=== PATIENT | female | born 1935 | race Caucasian/White ===

== ENCOUNTER 2016-08-17 13:01 | Emergency (ER) | payer MEDICARE ==
[~2016-08-17] VITALS: Ht 177.8 cm; Wt 81.6 kg
--- NOTE | 2016-08-17 14:22 | RAD ---
Pelvis, single view, 08/17/2016: History: Pelvic pain, recent fall No fracture or dislocation is identified. There are mild degenerative changes at both hip joints IMPRESSION: No acute bony abnormality is detected. Portable chest, 08/17/2016: History: Chest pain, recent fall The heart size and pulmonary vascularity are normal. No pulmonary infiltrates are seen. There is no evidence of pneumothorax or pleural fluid. The bony structures are demineralized. There are mild degenerative changes at both shoulders and in the spine. IMPRESSION: No acute cardiopulmonary abnormality is detected.
[2016-08-17 15:00] VITALS: BP 123/70
[2016-08-17] MEDS ORDERED: IBUP-1007 PO (15:08)
--- NOTE | 2016-08-17 15:16 | PHYS DOC ---
Past Medical History Past Medical History: Anxiety, Arthritis, Dementia, Depression, Diabetes-Type II, GERD, Glaucoma, High Cholesterol, Hypertension, Hypothyroid, IBS Past Surgical History: Other Additional Past Surgical Histo: UNKNOWN Alcohol Use: None Drug Use: None Adult General Chief Complaint Chief Complaint: MECHANICAL FALL HPI HPI Patient is a 81 year old male who presents with fall at home lives in assisted living and found her lying on the ground she had just fallen prior to that on the carpeted floor denies any pain or injury. History physical review of systems limited somewhat by patient's dementia. Denies any nausea vomiting diarrhea fever chest pain or shortness of breath. Denies any rib pain denies any headache or neck or back pain. No apparent injury seen Review of Systems Review of Systems Constitutional: Denies fever or chills [] Eyes: Denies change in visual acuity, redness, or eye pain [] HENT: Denies nasal congestion or sore throat [] Respiratory: Denies cough or shortness of breath [] Cardiovascular: No additional information not addressed in HPI [] GI: Denies abdominal pain, nausea, vomiting, bloody stools or diarrhea [] : Denies dysuria or hematuria [] Musculoskeletal: Denies back pain or joint pain [] Integument: Denies rash or skin lesions [] Neurologic: Denies headache, focal weakness or sensory changes [] Endocrine: Denies polyuria or polydipsia [] Allergies Allergies Allergies Coded Allergies Type Severity Reaction Last Updated Verified No Known Drug Allergies 08/17/16 No Physical Exam Physical Exam Constitutional: Well developed, well nourished, no acute distress, non-toxic appearance. [] HENT: Normocephalic, atraumatic, bilateral external ears normal, oropharynx moist, no oral exudates, nose normal. [] Eyes: PERRLA, EOMI, conjunctiva normal, no discharge. [] Neck: Normal range of motion, no tenderness, supple, no stridor. [] Cardiovascular:Heart rate regular rhythm, no murmur [] Lungs & Thorax: Bilateral breath sounds clear to auscultation [] Abdomen: Bowel sounds normal, soft, no tenderness, no masses, no pulsatile masses. [] Skin: Warm, dry, no erythema, no rash. [] Back: No tenderness, no CVA tenderness. [] Extremities: No tenderness, no cyanosis, no clubbing, ROM intact, no edema. [] Neurologic: Alert and oriented X 3, normal motor function, normal sensory function, no focal deficits noted. [] Psychologic: Affect normal, judgement normal, mood normal. [] Current Patient Data Vital Signs Vital Signs Date Time Temp Pulse Resp B/P (MAP) Pulse Ox O2 Delivery O2 Flow Rate FiO2 08/17/16 15:00 100 23 123/70 (87) 96 Room Air 08/17/16 13:15 97.8 97.8 Lab Values Laboratory Tests Test 08/17/16 14:33 POC Hemoglobin 13.6 g/dL (12-15) POC Hematocrit 40 % (36-40) POC Sodium 143 mmol/L (135-145) POC Potassium 4.0 mmol/L (3.5-5.0) POC Chloride 105 mmol/L (98-110) POC Total CO2 25 mmol/L (23-32) Anion Gap 18 mmol/L (6-14) H POC Blood Urea Nitrogen 25 mg/dL (8-26) POC Creatinine 1.4 mg/dL (0.5-1.4) Glucose Level 147 mg/dL (70-99) H POC Ionized Calcium (Demetris) 1.16 mmol/L (1.13-1.32) Laboratory Tests 08/17/16 14:33 EKG EKG Normal sinus rhythm rate of 80 no STEMI QTC normal at 1315 [] Radiology/Procedures Radiology/Procedures X-ray of the chest and pelvis reveal no acute bony abnormalities reports reviewed by me from radiology [] Course & Med Decision Making Course & Med Decision Making Pertinent Labs and Imaging studies reviewed. (See chart for details) Patient had no complaints of pain she was able to ambulate without difficulties and the daughter feels comfortable taking her home. [Extensive discussion with the daughter as she had mentioned questioning whether not the patient should have a CT head. On the one hand the patient has no signs or symptoms of trauma on exam has a nontender head and neck in fact has no evidence of trauma whatsoever on her entire body. He seems to have a fixed delusion probably related from her dementia thinking she was at a green party earlier today but does not appear to be globally confused. I have offered the option to get a CT scan of the head and the daughter is declining it at this time. head injury precautions given. Nothing to Suggest occult infection labs were normal and chest x-ray and pelvis x-ray were unremarkable.] Dragon Disclaimer Dragon Disclaimer This electronic medical record was generated, in whole or in part, using a voice recognition dictation system. Departure Departure Impression: Primary Impression: Fall Disposition: 01 HOME, SELF-CARE Condition: STABLE Patient Instructions: Fall Prevention and Home Safety, [id number] Additional Instructions: As we discussed please placed padding in her shoes; ice the feet and elevate after work; MIGUEL AVILA MD August 17, 2016 15:16
[2016-08-18] MEDS ORDERED: synthroid (01:28)
[2016-08-18] MEDS ORDERED: zoloft (01:28)
[2016-08-18] MEDS ORDERED: aricept (01:28)
[2016-08-18] MEDS ORDERED: [UNRECOGNIZED DRUG - OTHER] (01:28)
[2016-08-18] MEDS ORDERED: namenda (01:28)
[2016-08-18] MEDS ORDERED: trazadone (01:28)
[2016-08-18] MEDS ORDERED: [UNRECOGNIZED DRUG - OTHER] (01:28)
[2016-08-18] MEDS ORDERED: flexeril (01:28)
[2016-08-18] MEDS ORDERED: ramipril (01:28)
--- NOTE | 2016-08-18 07:05 | EKG ---
[facility] [address] [place] [address] Test Date: 2016-08-17 Test Time: 13:11:19 Pat Name: CARL MIKE Department: Room: Gender: F Telemetry Rn: : [id number] Requested By: MIGUEL AVILA Order Number: [id number] Reading MD: Sherri Escobar Measurements Intervals Rives Rate: 80 P: 43 NM: 158 QRS: 18 QRSD: 100 T: 23 QT: 378 QTc: 440 Interpretive Statements SINUS RHYTHM NORMAL EKG RI6.01 Unconfirmed report No previous ECG available for comparison Electronically Signed On 08-21-2016 14:32:13 CDT by Sherri Escobar
[2016-08-18] MEDS ORDERED: TRAZ50TA15 PO (10:20)
[2016-08-18] MEDS ORDERED: ESTR0.45 PO (10:20)
[2016-08-18] MEDS ORDERED: SIMV80TA3 PO (10:20)
[2016-08-18] MEDS ORDERED: MEMA10TA PO (10:20)
[2016-08-18] MEDS ORDERED: RAMI5CAP PO (10:20)
[2016-08-18] MEDS ORDERED: DONE10TA7 PO (10:20)
[2016-08-18] MEDS ORDERED: SERT50TA PO (10:20)
[2016-08-18] MEDS ORDERED: LEVO150T PO (10:20)
[2016-08-18] MEDS ORDERED: GLIM2TAB2 PO (10:20)
[2016-08-18] MEDS ORDERED: PANT40TA5 PO (10:20)
== END 2016-08-17 15:33 | disposition home or self-care (01) ==
LOC: ER 13:01
DX: F03.90 Unspecified dementia, unspecified severity, without behavioral disturbance, psychotic disturbance, mood disturbance, and anxiety (principal); F41.9 Anxiety disorder, unspecified; M19.90 Unspecified osteoarthritis, unspecified site; F32.9 Major depressive disorder, single episode, unspecified; E11.9 Type 2 diabetes mellitus without complications; K21.9 Gastro-esophageal reflux disease without esophagitis; H40.9 Unspecified glaucoma; E78.00 Pure hypercholesterolemia, unspecified; E03.9 Hypothyroidism, unspecified; I10 Essential (primary) hypertension; K58.9 Irritable bowel syndrome, unspecified; W18.39XA Other fall on same level, initial encounter; Y93.89 Activity, other specified; Y92.009 Unspecified place in unspecified non-institutional (private) residence as the place of occurrence of the external cause; Y99.8 Other external cause status
CPT/HCPCS: 71010; 72170; 80047; 93005; 99284-25

== ENCOUNTER 2016-08-17 19:24 | Inpatient (IN) | payer MEDICARE ==
[~2016-08-17] VITALS: Ht 165.1 cm; Wt 77.1 kg
[~2016-08-17 19:24] MED LIST: IBUP-1007 PO
[2016-08-17 19:50] LABS: BILIRUBIN,URINE MODERATE (NEG); GLUCOSE,URINE NEGATIVE (NEG); NITRITE,URINE NEGATIVE (NEG); PH,URINE 5.5; PROTEIN,URINE 100 mg/dL (NEG-TRACE); UROBILINOGEN,URINE 0.2 mg/dL (0.2 mg/dL)
--- NOTE | 2016-08-17 19:55 | PHYS DOC ---
Past Medical History Past Medical History: Anxiety, Arthritis, Dementia, Depression, Diabetes-Type II, GERD, Glaucoma, High Cholesterol, Hypertension, Hypothyroid, IBS Past Surgical History: Other Additional Past Surgical Histo: UNKNOWN Alcohol Use: None Drug Use: None Adult General Chief Complaint Chief Complaint: WEAKNESS/GENERALIZED HPI HPI Patient is a 81 year old female who presents with worsening mild to moderate altered mental status and confusion with a history of dementia; onset was noticed by the daughter when she went to check on the mother after having a fall at her assisted living apartment this morning.. She was seen a few hours earlier by me at that time and had a fall at home but no complaints of pain or injury with done a chest x-ray and pelvis x-ray and check blood work which was unremarkable. Patient was ambulatory in the ED and was calm and seemed to answer questions appropriately while in the ED. I have had a discussion with him daughter regarding a CT of the abdomen which they have declined at that time and felt comfortable going home. Since that time the patient appears to be having some hallucinations at the house but no recurrent falls. Dr. mazas aware of the situation and we will be admitting after checking a urine and a CT of the head and C-spine. Review of Systems Review of Systems Constitutional: Denies fever or chills [] Eyes: Denies change in visual acuity, redness, or eye pain [] HENT: Denies nasal congestion or sore throat [] Respiratory: Denies cough or shortness of breath [] Cardiovascular: No additional information not addressed in HPI [] GI: Denies abdominal pain, nausea, vomiting, bloody stools or diarrhea [] : Denies dysuria or hematuria [] Musculoskeletal: Denies back pain or joint pain [] Integument: Denies rash or skin lesions [] Neurologic: Denies headache, focal weakness or sensory changes [] Endocrine: Denies polyuria or polydipsia [] Current Medications Current Medications Current Medications Medications (Trade) Dose Ordered Sig/Cody Start Time Stop Time Status Last Admin Dose Admin Acetaminophen (Tylenol) 650 mg PRN Q4HRS PRN 08/17/16 20:45 08/18/16 20:44 Ondansetron HCl (Zofran) 4 mg PRN Q8HRS PRN 08/17/16 20:45 08/18/16 20:44 Allergies Allergies Allergies Coded Allergies Type Severity Reaction Last Updated Verified No Known Drug Allergies 08/17/16 No Physical Exam Physical Exam Constitutional: Well developed, well nourished, no acute distress, non-toxic appearance. [Very pleasant without complaints] HENT: Normocephalic, atraumatic, bilateral external ears normal, oropharynx moist, no oral exudates, nose normal. [] Eyes: PERRLA, EOMI, conjunctiva normal, no discharge. [] Neck: Normal range of motion, no tenderness, supple, no stridor. [] Cardiovascular:Heart rate regular rhythm, no murmur [] Lungs & Thorax: Bilateral breath sounds clear to auscultation [] Abdomen: Bowel sounds normal, soft, no tenderness, no masses, no pulsatile masses. [] Skin: Warm, dry, no erythema, no rash. [] Back: No tenderness, no CVA tenderness. [] Extremities: No tenderness, no cyanosis, no clubbing, ROM intact, no edema. [] Neurologic: Alert and appears to be coherent and understanding where she has. She is a very poor historian and is difficult to distinction between dementia., normal motor function, normal sensory function, no focal deficits noted. [Knows signs of stroke seen on exam] Psychologic: Affect normal, judgement normal, mood normal. [] Current Patient Data Vital Signs Vital Signs Date Time Temp Pulse Resp B/P (MAP) Pulse Ox O2 Delivery O2 Flow Rate FiO2 08/17/16 19:52 99.2 96 20 138/69 (92) 93 Room Air 99.2 Lab Values Laboratory Tests Test 08/17/16 19:42 Urine Collection Type U cath Urine Color Yellow Urine Clarity Turbid Urine pH 5.5 Urine Specific [place] 1.020 Urine Protein 100 mg/dL (NEG-TRACE) Urine Glucose (UA) Negative mg/dL (NEG) Urine Ketones (Stick) Trace mg/dL (NEG) Urine Blood Moderate (NEG) Urine Nitrite Negative (NEG) Urine Bilirubin Moderate (NEG) Urine Urobilinogen Dipstick 0.2 mg/dL (0.2 mg/dL) Urine Leukocyte Esterase Trace (NEG) Urine RBC 1-2 /HPF (0-2) Urine WBC 5-10 /HPF (0-4) Urine Squamous Epithelial Cells Mod /LPF Urine Transitional Epithelial Cells Few /LPF Urine Amorphous Sediment Present /HPF Urine Bacteria 0 /HPF (0-FEW) Urine Hyaline Casts Moderate /HPF Urine Granular Casts Few /HPF Urine Mucus Mod /LPF EKG EKG [] Radiology/Procedures Radiology/Procedures CT head and C-spine: [Per radiology report negative no acute fracture and no bleed] Course & Med Decision Making Course & Med Decision Making Pertinent Labs and Imaging studies reviewed. (See chart for details) Daughter feels patient's much more confused we will admit due to failed outpatient management. We will exclude any occult trauma with a head and cervical spine CT and checking urine to exclude UTI. We'll discuss with Dr. Santos and plan to admit for observation. [] Dragon Disclaimer Dragon Disclaimer This electronic medical record was generated, in whole or in part, using a voice recognition dictation system. Departure Departure Impression: Primary Impression: Altered mental status Additional Impression: Dementia Disposition: 09 ADMITTED INPATIENT Admitting Physician: Winnie Santos Condition: STABLE Referrals: WINNIE SANTOS MD (PCP) Problem Qualifiers MIGUEL AVILA MD August 17, 2016 19:55
[2016-08-17 20:04] LABS: BACTERIA,URINE 0 /HPF (0-FEW); SQUAMOUS EPITHELIAL CELL,UR MOD /LPF
--- NOTE | 2016-08-17 20:32 | RAD ---
Exam performed: CT scan of the head and cervical spine without contrast. Date of Service: 08/17/2016 Comparison: None available Clinical History: Fall, confusion Technique: Helical acquisitions are obtained from the foramen magnum to the vertex without intravenous administration of contrast. In addition helical acquisitions are obtained through the cervical spine. Sagittal and coronal reformatted images are obtained and reviewed. CT scan head findings: Prominence of cortical sulci and ventricular system is noted consistent with age related atrophy. There are areas of low-attenuation within periventricular and subcortical deep white matter suggesting small vessel ischemic changes. Normal ding-white differentiation is maintained. There is no extra axial fluid collection, intraparenchymal hemorrhage or mass lesion. There is mucoperiosteal thickening involving the left maxillary and bilateral ethmoid air cells. The visualized orbits and the mastoid air cells are clear. The calvarium is intact. Impression: 1. Normal non-contrast CT of the brain. 2. Age-related atrophy and bilateral periventricular small vessel ischemic changes. 3. Left maxillary and bilateral ethmoid sinus disease. End Impression. CT cervical spine findings: Straightening of the cervical curvature. Bony fusion at C4-5 and C6 level. The remainder vertebral body heights are maintained. There is narrowing of C3/4 intravertebral disc space. There is no lorie or retrolisthesis. No prevertebral soft tissue swelling is identified. There are no fractures. No definite lymphadenopathy or masses are seen within the neck. The visualized thyroid and salivary glands appears preserved. Impression: 1. No acute abnormality seen in the CT scan cervical spine. 2. Spondylotic changes and degenerative disc disease noted. PQRS Compliance Statement: One or more of the following individualized dose reduction techniques were utilized for this examination: 1. Automated exposure control 2. Adjustment of the mA and/or kV according to patient size 3. Use of iterative reconstruction technique Electronically signed by: Tia Acosta MD (08/17/2016 8:29 PM)
[2016-08-17] MEDS ORDERED: ONDANSETRON PF 4 MG/2 ML VIAL. IV PRN (20:45)
[2016-08-17] MEDS ORDERED: ACETAMINOPHEN 325 MG TABLET. PO PRN (20:45)
[2016-08-18] VITALS (7 sets, daily range): BP systolic 128–142; BP diastolic 57–82
--- NOTE | 2016-08-18 01:06 | ACF ---
Admission Forms Criteria MENTAL STATUS CHANGE Clinical Indications for Inpatient Care (Place 'X' for any and all applicable criteria): Ongoing inpatient care may be needed for 1 or more of the following(1)(2)(3)(5)( 6): [X]I. Suspected serious etiology (eg, medical disorder, OPTOMECH[employer] ENGINEER event) of altered mental status [ ]II. Danger to self or others not manageable at lower level of care [ ]III. Grave disability (eg, inability to perform self care necessary at lower level of care) [ ]IV. Agitation or inappropriate behavior interfering with care for primary condition (eg, attempting to discontinue lines or drains prematurely, unable to cooperate with respiratory care) [ ]V. Delirium [A] [D][E] as described by 1 or more of the following(26): [ ]a) Delirium due to alcohol or sedative [F] withdrawal [ ]b) Delirium of uncertain etiology that has not responded to appropriate empiric treatment [ ]c) Delirium that prevents performance of a life-sustaining function (eg, feeding or hydrating oneself) [ ]. General contraindications and/or Inappropriate clinical situations for Observational Care in patients with Mental Status Change, when ANY ONE of the following is required: [ ]a) Prediction of prolongation of LOS based on ANY ONE of the following may be considered as a contraindication for observational care 2, 3, 4, 5, 6, 7, 8, 9, 10, 11 [ ]i) Age > 65 yrs. [ ]ii) Patient arriving by ambulance [ ]iii) Patient with high acuity [ ]iv) Patient requiring vital sign monitoring [ ]v) Patient on IV medication [ ]b) Systolic blood pressures greater than or equal to 180mmHg 3, 12 [ ]c) Patient with altered mental status including delirium and other alteration of consciousness, (3) [ ]d) Patient whose discharge disposition will be to a group home home or rehabilitation home should not be managed in Emergency Department Observation Unit. CMS rule requires 3 days hospital stay before such placement.3,13 [ ]e) Patient with failure to thrive due to broad array of etiologies 3,16,17 [ ]f) Inability to ambulate 3,14 Extended stay beyond goal length of stay for the primary condition may be needed until ALL of the following are present(3)(5): [ ]a) Underlying medical etiology of mental status change is absent, or has been established and adequately treated [ ]b) Danger to self or others is absent or manageable at lower level of care. [ ]c) Behavior crisis management, including physical or chemical restraints, is not required or available at lower level of car [ ]d) Substance or alcohol withdrawal is absent or manageable at lower level of care. [ ]e) Behavioral symptoms (eg, agitation, somnolence, inappropriate behavior) are absent, or are manageable at lower level of care. The original [facility] content created by [facility] has been revised. The portions of the content which have been revised are identified through the use of italic text or in bold, and [facility] has neither reviewed nor approved the modified material. All other unmodified content is copyright [facility]. Please see references footnoted in the original [facility] edition 2016 Admission Criteria Met?: Yes OSMAR WANG August 18, 2016 01:06
[2016-08-18] MEDS ORDERED: zoloft (01:28)
[2016-08-18] MEDS ORDERED: namenda (01:28)
[2016-08-18] MEDS ORDERED: trazadone (01:28)
[2016-08-18] MEDS ORDERED: flexeril (01:28)
[2016-08-18] MEDS ORDERED: aricept (01:28)
[2016-08-18] MEDS ORDERED: synthroid (01:28)
[2016-08-18] MEDS ORDERED: [UNRECOGNIZED DRUG - OTHER] (01:28)
[2016-08-18] MEDS ORDERED: [UNRECOGNIZED DRUG - OTHER] (01:28)
[2016-08-18] MEDS ORDERED: ramipril (01:28)
--- NOTE | 2016-08-18 08:00 | PDOC ---
GENERAL General: see dictated H&P. Problems: VITAL SIGNS Vital Signs: Vital Signs Date Time Temp Pulse Resp B/P (MAP) Pulse Ox O2 Delivery O2 Flow Rate FiO2 08/18/16 07:00 97.2 87 20 128/65 (86) 98 Room Air 97.2 ALLERGIES Allergies: Allergies Coded Allergies Type Severity Reaction Last Updated Verified No Known Drug Allergies 08/17/16 No MEDS Medications: Current Medications Medications (Trade) Dose Ordered Sig/Cody Start Time Stop Time Status Last Admin Dose Admin Acetaminophen (Tylenol) 650 mg PRN Q4HRS PRN 08/17/16 20:45 08/18/16 20:44 Ondansetron HCl (Zofran) 4 mg PRN Q8HRS PRN 08/17/16 20:45 08/18/16 20:44 LAB Lab: Laboratory Tests Test 08/17/16 19:42 Urine Collection Type U cath Urine Color Yellow Urine Clarity Turbid Urine pH 5.5 Urine Specific [place] 1.020 Urine Protein 100 mg/dL (NEG-TRACE) Urine Glucose (UA) Negative mg/dL (NEG) Urine Ketones (Stick) Trace mg/dL (NEG) Urine Blood Moderate (NEG) Urine Nitrite Negative (NEG) Urine Bilirubin Moderate (NEG) Urine Urobilinogen Dipstick 0.2 mg/dL (0.2 mg/dL) Urine Leukocyte Esterase Trace (NEG) Urine RBC 1-2 /HPF (0-2) Urine WBC 5-10 /HPF (0-4) Urine Squamous Epithelial Cells Mod /LPF Urine Transitional Epithelial Cells Few /LPF Urine Amorphous Sediment Present /HPF Urine Bacteria 0 /HPF (0-FEW) Urine Hyaline Casts Moderate /HPF Urine Granular Casts Few /HPF Urine Mucus Mod /LPF WINNIE SANTOS MD August 18, 2016 08:00
[2016-08-18 09:39] LABS: BASO # 0.2 x10^3/uL (0.0-0.2); BASO % 1 % (0-3); EOS % 3 % (0-3); HEMATOCRIT 33.6 % (36.0-47.0); HEMOGLOBIN 11.5 g/dL (12.0-15.5); LYMPH % 21 % (24-48); MEAN CORPUSCULAR HEMOGLOBIN 31 pg (25-35); MEAN CORPUSCULAR HGB CONC 34 g/dL (31-37); MEAN CORPUSCULAR VOLUME 92 fL (79-100); MONO % 7 % (0-9); NEUT % 68 % (31-73); PLATELET COUNT 370 x10^3/uL (140-400); RED BLOOD COUNT 3.66 x10^6/uL (3.50-5.40); RED CELL DISTRIBUTION WIDTH 14.2 % (11.5-14.5); WHITE BLOOD COUNT 14.3 x10^3/uL (4.0-11.0)
[2016-08-18 09:55] LABS: ALBUMIN 3.2 g/dL (3.4-5.0); ALBUMIN/GLOBULIN RATIO 0.9 (1.0-1.7); CALCIUM 8.8 mg/dL (8.5-10.1); CREATININE 2.4 mg/dL (0.6-1.0); GFR 19.4; POTASSIUM 3.5 mmol/L (3.5-5.1); TOTAL BILIRUBIN 0.3 mg/dL (0.2-1.0); TOTAL PROTEIN 6.9 g/dL (6.4-8.2)
[2016-08-18] MEDS ORDERED: ESTR0.45 PO (10:20)
[2016-08-18] MEDS ORDERED: RAMI5CAP PO (10:20)
[2016-08-18] MEDS ORDERED: SIMV80TA3 PO (10:20)
[2016-08-18] MEDS ORDERED: PANT40TA5 PO (10:20)
[2016-08-18] MEDS ORDERED: LEVO150T PO (10:20)
[2016-08-18] MEDS ORDERED: GLIM2TAB2 PO (10:20)
[2016-08-18] MEDS ORDERED: MEMA10TA PO (10:20)
[2016-08-18] MEDS ORDERED: TRAZ50TA15 PO (10:20)
[2016-08-18] MEDS ORDERED: SERT50TA PO (10:20)
[2016-08-18] MEDS ORDERED: DONE10TA7 PO (10:20)
[2016-08-18] MEDS: GLIMEPIRIDE 2 MG TABLET. PO SCH (11:03)
[2016-08-18] MEDS: PANTOPRAZOLE 40 MG TABLET.DR. PO SCH (11:03)
[2016-08-18] MEDS: LEVOTHYROXINE 150 MCG TABLET PO SCH (11:03)
[2016-08-18] MEDS: LISINOPRIL 10 MG TABLET PO SCH (11:04)
[2016-08-18] MEDS: SERTRALINE 50 MG TABLET. PO SCH (11:04)
[2016-08-18] MEDS: MEMANTINE 10 MG TABLET. PO SCH ×2 (11:04→20:33)
[2016-08-18] MEDS: ESTROGENS, CONJUGATED 0.3 MG TABLET PO SCH (12:07)
--- NOTE | 2016-08-18 13:51 | PDOC2 ---
NEUROLOGY CONSULT Date of Admission Date of Admission DATE: 08/18/16 TIME: 13:36 Reason for Consult Reason for Consult: IMPRESSION: Mental status changes. Metabolic encephalopathy. Hallucinations. Confusion. Fall. UTI Renal failure. DM HTN HLD Hypothyroidism. Dementia . RECOMMENDATIONS/PLAN: EEG Lab: see orders. Treat medical diseases. Treat UTI. UT/PT. HCT and CCT: Negative for acute findings. HISTORY OF THE PRESENT ILLNESS: 81-y-old female patient with above medical diseases has had a fall in her Assistance Living Apartment. She also has symptoms of generalized weakness and noted MS changes and confusion to be brought to the ER of [facility]. No focalized sensopty or motor deficits, but she was said to have hallucinations. Patient was unable to provide detail information about her hallucinations. PAST MEDICAL HISTORY: Please see above. PAST SURGERY HISTORY: No major surgery recently. ALLERGY: Unknown MEDICATIONS: Refer to [facility] HISTORY: Non contributory. SOCIAL HISTORY: Lives in Assistance Living apartment. Denies current smoking, drinking, and illicit drug use. REVIEW OF SYSTEMS: Constitutional: No malnutrition, or cachexia. Head: No traumatic brain or head injury. Skin: No edema, or rash. Ear: No infection. Eyes: No vision loss or color blindness. Nose: No bleeding or purulent discharges. Hearing: Hearing decrease. Neck: No injury. Breast: No history of cancer, masses,or discharges. Cardiac: HTN, HLD. Pulmonary: No COPD. GI: GERD. Urinary/genital: UTI. Endocrinologic: Diabetes Mellitus, hypothyroidism. Skeletomuscular: Generalized weakness. Neurological: see HP. Psychiatric: Denies drug use/abuse. Otherwise, not [id number] review of systems. PHYSICAL EXAMINATION: General appearance is in no acute distress. HEENT: Normocephalic and nontraumatic. Eyes, nose, ears, and throat are unremarkable. Neck is supple. No lymphadenopathy. No crepitus. Cardiovascular: S1, S2, regular rate and rhythm. Pulmonary: Clear to auscultation bilaterally. Abdomen: Bowel sounds are positive. Extremities: No rash, lesions, or edema. No restriction of range of motion NEUROLOGICAL EXAMINATION: Awake. Not oriented to time, place and person. PERRL. EOMI. CN: no focal findings. Muscle tone: within normal. Muscle strength: 4 DTR: 2 Plantar reflex: Neutral response bilaterally Gait: not examined in bed. Sensory exam: no acute abnormal findings. No cerebellar signs elicited. F-T-N test fine. Current Medications Current Medications Current Medications Ondansetron HCl (Zofran) 4 mg PRN Q8HRS PRN IV NAUSEA/VOMITING; Start 08/17/16 at 20:45; Stop 08/18/16 at 20:44 Acetaminophen (Tylenol) 650 mg PRN Q4HRS PRN PO FEVER; Start 08/17/16 at 20:45 ; Stop 08/18/16 at 20:44 Donepezil HCl (Aricept) 10 mg DAILY PO ; Start 08/19/16 at 11:00 Glimepiride (Amaryl) 2 mg DAILY08 PO Last administered on 08/18/16 11:03; Start 08/18/16 at 11:00 Levothyroxine Sodium (Synthroid) 150 mcg DAILY07 PO Last administered on 11:03; Start 08/18/16 at 11:00 Memantine (Namenda) 10 mg BID PO Last administered on 08/18/16 11:04; Start at 11:00 Pantoprazole Sodium (Protonix) 40 mg DAILY07 PO Last administered on 08/18/16 11:03; Start 08/18/16 at 11:00 Sertraline HCl (Zoloft) 50 mg DAILY PO Last administered on 08/18/16 11:04; Start 08/18/16 at 11:00 Trazodone HCl (Desyrel) 50 mg QHS PO ; Start 08/18/16 at 21:00 Estrogens Conjugated (Premarin) 0.45 mg DAILY PO Last administered on 12:07; Start 08/18/16 at 11:00 Lisinopril (Prinivil) 10 mg DAILY PO Last administered on 08/18/16 11:04; Start 08/18/16 at 11:00 Simvastatin (Zocor) 80 mg QHS PO ; Start 08/18/16 at 21:00 Active Scripts Active Reported Ramipril 5 Mg Capsule 1 Cap PO DAILY Glimepiride 2 Mg Tablet 1 Tab PO DAILY Namenda (Memantine Hcl) 10 Mg Tablet 1 Tab PO BID Premarin (Estrogens, Conjugated) 0.45 Mg Tablet 1 Tab PO DAILY Simvastatin 80 Mg Tablet 1 Tab PO QHS Synthroid (Levothyroxine Sodium) 150 Mcg Tablet 1 Tab PO DAILY Donepezil Hcl 10 Mg Tablet 1 Tab PO DAILY Pantoprazole Sodium 40 Mg Tablet.dr 1 Tab PO DAILY Trazodone Hcl 50 Mg Tablet 1 Tab PO QHS Zoloft (Sertraline Hcl) 50 Mg Tablet 1 Tab PO DAILY Allergies Allergies: Coded Allergies: No Known Drug Allergies (Unverified , 08/17/16) Vitals VITALS Vital Signs Date Time Temp Pulse Resp B/P (MAP) Pulse Ox O2 Delivery O2 Flow Rate FiO2 08/18/16 11:04 87 128/65 08/18/16 11:00 98.0 22 98 Room Air 98.0 Labs Labs Laboratory Tests Test 08/17/16 19:42 08/18/16 09:30 Urine Collection Type U cath Urine Color Yellow Urine Clarity Turbid Urine pH 5.5 Urine Specific [place] 1.020 Urine Protein 100 mg/dL (NEG-TRACE) Urine Glucose (UA) Negative mg/dL (NEG) Urine Ketones (Stick) Trace mg/dL (NEG) Urine Blood Moderate (NEG) Urine Nitrite Negative (NEG) Urine Bilirubin Moderate (NEG) Urine Urobilinogen Dipstick 0.2 mg/dL (0.2 mg/dL) Urine Leukocyte Esterase Trace (NEG) Urine RBC 1-2 /HPF (0-2) Urine WBC 5-10 /HPF (0-4) Urine Squamous Epithelial Cells Mod /LPF Urine Transitional Epithelial Cells Few /LPF Urine Amorphous Sediment Present /HPF Urine Bacteria 0 /HPF (0-FEW) Urine Hyaline Casts Moderate /HPF Urine Granular Casts Few /HPF Urine Mucus Mod /LPF White Blood Count 14.3 x10^3/uL (4.0-11.0) Red Blood Count 3.66 x10^6/uL (3.50-5.40) Hemoglobin 11.5 g/dL (12.0-15.5) Hematocrit 33.6 % (36.0-47.0) Mean Corpuscular Volume 92 fL (79-100) Mean Corpuscular Hemoglobin 31 pg (25-35) Mean Corpuscular Hemoglobin Concent 34 g/dL (31-37) Red Cell Distribution Width 14.2 % (11.5-14.5) Platelet Count 370 x10^3/uL (140-400) Neutrophils (%) (Auto) 68 % (31-73) Lymphocytes (%) (Auto) 21 % (24-48) Monocytes (%) (Auto) 7 % (0-9) Eosinophils (%) (Auto) 3 % (0-3) Basophils (%) (Auto) 1 % (0-3) Neutrophils # (Auto) 9.7 x10^3uL (1.8-7.7) Lymphocytes # (Auto) 3.0 x10^3/uL (1.0-4.8) Monocytes # (Auto) 1.0 x10^3/uL (0.0-1.1) Eosinophils # (Auto) 0.4 x10^3/uL (0.0-0.7) Basophils # (Auto) 0.2 x10^3/uL (0.0-0.2) Erythrocyte Sedimentation Rate 65 (0-25) Sodium Level 137 mmol/L (136-145) Potassium Level 3.5 mmol/L (3.5-5.1) Chloride Level 100 mmol/L (98-107) Carbon Dioxide Level 28 mmol/L (21-32) Anion Gap 9 (6-14) Blood Urea Nitrogen 40 mg/dL (7-20) Creatinine 2.4 mg/dL (0.6-1.0) Estimated GFR (Cockcroft-Gault) 19.4 BUN/Creatinine Ratio 17 (6-20) Glucose Level 233 mg/dL (70-99) Calcium Level 8.8 mg/dL (8.5-10.1) Total Bilirubin 0.3 mg/dL (0.2-1.0) Aspartate Amino Transf (AST/SGOT) 55 U/L (15-37) Alanine Aminotransferase (ALT/SGPT) 37 U/L (14-59) Alkaline Phosphatase 73 U/L (46-116) Total Protein 6.9 g/dL (6.4-8.2) Albumin 3.2 g/dL (3.4-5.0) Albumin/Globulin Ratio 0.9 (1.0-1.7) Vitamin B12 Level 287 pg/mL (247-911) Thyroid Stimulating Hormone (TSH) 6.631 uIU/mL (0.358-3.74) Laboratory Tests Test 08/17/16 19:42 08/18/16 09:30 Urine Collection Type U cath Urine Color Yellow Urine Clarity Turbid Urine pH 5.5 Urine Specific [place] 1.020 Urine Protein 100 mg/dL (NEG-TRACE) Urine Glucose (UA) Negative mg/dL (NEG) Urine Ketones (Stick) Trace mg/dL (NEG) Urine Blood Moderate (NEG) Urine Nitrite Negative (NEG) Urine Bilirubin Moderate (NEG) Urine Urobilinogen Dipstick 0.2 mg/dL (0.2 mg/dL) Urine Leukocyte Esterase Trace (NEG) Urine RBC 1-2 /HPF (0-2) Urine WBC 5-10 /HPF (0-4) Urine Squamous Epithelial Cells Mod /LPF Urine Transitional Epithelial Cells Few /LPF Urine Amorphous Sediment Present /HPF Urine Bacteria 0 /HPF (0-FEW) Urine Hyaline Casts Moderate /HPF Urine Granular Casts Few /HPF Urine Mucus Mod /LPF White Blood Count 14.3 x10^3/uL (4.0-11.0) Red Blood Count 3.66 x10^6/uL (3.50-5.40) Hemoglobin 11.5 g/dL (12.0-15.5) Hematocrit 33.6 % (36.0-47.0) Mean Corpuscular Volume 92 fL (79-100) Mean Corpuscular Hemoglobin 31 pg (25-35) Mean Corpuscular Hemoglobin Concent 34 g/dL (31-37) Red Cell Distribution Width 14.2 % (11.5-14.5) Platelet Count 370 x10^3/uL (140-400) Neutrophils (%) (Auto) 68 % (31-73) Lymphocytes (%) (Auto) 21 % (24-48) Monocytes (%) (Auto) 7 % (0-9) Eosinophils (%) (Auto) 3 % (0-3) Basophils (%) (Auto) 1 % (0-3) Neutrophils # (Auto) 9.7 x10^3uL (1.8-7.7) Lymphocytes # (Auto) 3.0 x10^3/uL (1.0-4.8) Monocytes # (Auto) 1.0 x10^3/uL (0.0-1.1) Eosinophils # (Auto) 0.4 x10^3/uL (0.0-0.7) Basophils # (Auto) 0.2 x10^3/uL (0.0-0.2) Erythrocyte Sedimentation Rate 65 (0-25) Sodium Level 137 mmol/L (136-145) Potassium Level 3.5 mmol/L (3.5-5.1) Chloride Level 100 mmol/L (98-107) Carbon Dioxide Level 28 mmol/L (21-32) Anion Gap 9 (6-14) Blood Urea Nitrogen 40 mg/dL (7-20) Creatinine 2.4 mg/dL (0.6-1.0) Estimated GFR (Cockcroft-Gault) 19.4 BUN/Creatinine Ratio 17 (6-20) Glucose Level 233 mg/dL (70-99) Calcium Level 8.8 mg/dL (8.5-10.1) Total Bilirubin 0.3 mg/dL (0.2-1.0) Aspartate Amino Transf (AST/SGOT) 55 U/L (15-37) Alanine Aminotransferase (ALT/SGPT) 37 U/L (14-59) Alkaline Phosphatase 73 U/L (46-116) Total Protein 6.9 g/dL (6.4-8.2) Albumin 3.2 g/dL (3.4-5.0) Albumin/Globulin Ratio 0.9 (1.0-1.7) Vitamin B12 Level 287 pg/mL (247-911) Thyroid Stimulating Hormone (TSH) 6.631 uIU/mL (0.358-3.74) SAURABH MALDONADO MD August 18, 2016 13:51
[2016-08-18 14:08] LABS: FREE T4 1.06 ng/dL (0.76-1.46)
[2016-08-18] MEDS: SIMVASTATIN 40 MG TABLET. PO SCH (20:33)
[2016-08-18] MEDS: traZODone 50 MG TABLET. PO SCH (20:33)
--- NOTE | 2016-08-18 22:41 | EEG ---
DATE OF SERVICE: 08/18/2016 EEG NUMBER: [id number]. OBJECTIVE: This is an 81-year-old female patient with history of mental status changes. EEG was requested to evaluate cerebral activity. METHODS: Twenty electrodes were applied according to the international 10-20 electrode placement system. EKG monitoring, hyperventilation, intermittent photic stimulation, monopolar and bipolar montages are routinely utilized. The record was obtained on a digital system with video monitoring. FINDINGS: 1. Background: The patient was recorded in the awake, drowsy, and sleep states. The overall background amplitude is 10-20 microvolts. A posterior dominant rhythm of 6-8 Hz is observed. 2. Abnormalities: No specific epileptiform discharge or electrographic seizure is seen. No focal or diffuse slowing. 3. Activation: Hyperventilation was performed with good efforts and normal response. Intermittent photic stimulation was performed with photic driving. No specific epileptiform discharge or electrographic seizure induced by hyperventilation or intermittent photic stimulation. IMPRESSION: This EEG is an abnormal study for the awake, drowsy, and sleep states. The posterior dominant rhythm of 6-8 Hz is slow for age. No focal, lateralizing, specific epileptiform discharge or electrographic seizure is seen. SAURABH MALDONADO MD DR: HIMANSHU/simón JOB#: [id number] / [id number]
[2016-08-19 07:00] VITALS: BP 115/60
--- NOTE | 2016-08-19 07:00 | HP ---
ADMIT DATE: 08/17/2016 CHIEF COMPLAINT AND HISTORY OF PRESENT ILLNESS: This is an 81-year-old white female who is well known to me from followup in the office. The patient had a fall on the day of admission, was taken to the Emergency Room earlier in the day where she was found to have significant injuries. Upon returning home, the patient was hallucinating, seeing bugs and much more confused than usual. They were instructed to take her back to the Emergency Room for the same where nothing specific was found other than her difference in behavior with CT neck and head looking normal, no evidence of urinary tract infection. The patient was admitted to the hospital for the mental status changes as well as hallucinations. PAST MEDICAL HISTORY: Remarkable for depression, anxiety, arthritis, dementia, diabetes, hyperlipidemia, hypertension, gastroesophageal reflux disease (GERD), hypothyroidism, irritable bowel syndrome. PAST SURGICAL HISTORY: Unremarkable. MEDICATIONS: Brought with the patient, listed on the computer and have been addressed. ALLERGIES: She has no known drug allergies. SOCIAL HISTORY: She is a nonsmoker, nondrinker, does not use drugs. Lives at home alone in an apartment, has a very supportive family, is . FAMILY HISTORY: Noncontributory. REVIEW OF SYSTEMS: As mentioned above. PHYSICAL EXAMINATION: GENERAL: She is a well-developed, well-nourished pleasant white female in no acute distress, but definitely more confused than her normal state. She is not actually hallucinating at the time of my examination. HEENT: Remarkable for glasses. NECK: Supple without bruit, thyromegaly. CHEST: Clear to auscultation and percussion. HEART: Regular rate and rhythm without S3, S4 or murmur. ABDOMEN: Soft, nontender, without hepatosplenomegaly or masses. EXTREMITIES: Without cyanosis, clubbing or edema. NEUROLOGIC: Nonfocal. IMPRESSION: Encephalopathy with hallucinations of uncertain etiology in a patient with multiple underlying medical conditions as outlined above and a fall earlier in the day. PLAN: The patient has been admitted. She will be observed. Neurology will be consulted for an opinion and the patient will be monitored, managed and treated appropriately. WINNIE SANTOS MD DR: SACHI/simón JOB#: [id number] / [id number]
[2016-08-19] MEDS: MEMANTINE 10 MG TABLET. PO SCH ×2 (08:21→20:03)
[2016-08-19] MEDS: SERTRALINE 50 MG TABLET. PO SCH (08:21)
[2016-08-19] MEDS: LISINOPRIL 10 MG TABLET PO SCH (08:21)
[2016-08-19] MEDS: GLIMEPIRIDE 2 MG TABLET. PO SCH (08:21)
[2016-08-19] MEDS: PANTOPRAZOLE 40 MG TABLET.DR. PO SCH (08:21)
[2016-08-19] MEDS: ESTROGENS, CONJUGATED 0.3 MG TABLET PO SCH (08:22)
--- NOTE | 2016-08-19 08:27 | PDOC ---
GENERAL General: vss and afebrile. awake and alert and pleasant. some redness lower lumbar area felt to be pressure in nature. exam stable. will recheck bmp this am with creatinine elevated at 2.4 on admit. further plans pending eeg and neuro direction. will have therapy eval. possibly home later today depending. Problems: VITAL SIGNS Vital Signs: Vital Signs Date Time Temp Pulse Resp B/P (MAP) Pulse Ox O2 Delivery O2 Flow Rate FiO2 08/19/16 07:00 97.7 80 20 115/60 (78) 98 Room Air 97.7 I & O I & O Intake and Output 08/19/16 06:59 Intake Total 2880 ml Output Total 1100 ml Balance 1780 ml Intake Oral 2880 ml Output Urine Total 1100 ml # Voids 9 # Bowel Movements 2 ALLERGIES Allergies: Allergies Coded Allergies Type Severity Reaction Last Updated Verified No Known Drug Allergies 08/17/16 No MEDS Medications: Current Medications Medications (Trade) Dose Ordered Sig/Cody Start Time Stop Time Status Last Admin Dose Admin Acetaminophen (Tylenol) 650 mg PRN Q4HRS PRN 08/17/16 20:45 08/18/16 20:44 DC Donepezil HCl (Aricept) 10 mg DAILY 08/19/16 11:00 Estrogens Conjugated (Premarin) 0.45 mg DAILY 08/18/16 11:00 08/18/16 12:07 0.45 MG Glimepiride (Amaryl) 2 mg DAILY08 08/18/16 11:00 08/18/16 11:03 2 MG Levothyroxine Sodium (Synthroid) 150 mcg DAILY07 08/18/16 11:00 08/18/16 11:03 150 MCG Lisinopril (Prinivil) 10 mg DAILY 08/18/16 11:00 08/18/16 11:04 10 MG Memantine (Namenda) 10 mg BID 08/18/16 11:00 08/18/16 20:33 10 MG Ondansetron HCl (Zofran) 4 mg PRN Q8HRS PRN 08/17/16 20:45 08/18/16 20:44 DC Pantoprazole Sodium (Protonix) 40 mg DAILY07 08/18/16 11:00 08/18/16 11:03 40 MG Sertraline HCl (Zoloft) 50 mg DAILY 08/18/16 11:00 08/18/16 11:04 50 MG Simvastatin (Zocor) 80 mg QHS 08/18/16 21:00 08/18/16 20:33 80 MG Trazodone HCl (Desyrel) 50 mg QHS 08/18/16 21:00 08/18/16 20:33 50 MG LAB Lab: Laboratory Tests Test 08/18/16 09:30 White Blood Count 14.3 x10^3/uL (4.0-11.0) Red Blood Count 3.66 x10^6/uL (3.50-5.40) Hemoglobin 11.5 g/dL (12.0-15.5) Hematocrit 33.6 % (36.0-47.0) Mean Corpuscular Volume 92 fL (79-100) Mean Corpuscular Hemoglobin 31 pg (25-35) Mean Corpuscular Hemoglobin Concent 34 g/dL (31-37) Red Cell Distribution Width 14.2 % (11.5-14.5) Platelet Count 370 x10^3/uL (140-400) Neutrophils (%) (Auto) 68 % (31-73) Lymphocytes (%) (Auto) 21 % (24-48) Monocytes (%) (Auto) 7 % (0-9) Eosinophils (%) (Auto) 3 % (0-3) Basophils (%) (Auto) 1 % (0-3) Neutrophils # (Auto) 9.7 x10^3uL (1.8-7.7) Lymphocytes # (Auto) 3.0 x10^3/uL (1.0-4.8) Monocytes # (Auto) 1.0 x10^3/uL (0.0-1.1) Eosinophils # (Auto) 0.4 x10^3/uL (0.0-0.7) Basophils # (Auto) 0.2 x10^3/uL (0.0-0.2) Erythrocyte Sedimentation Rate 65 (0-25) Sodium Level 137 mmol/L (136-145) Potassium Level 3.5 mmol/L (3.5-5.1) Chloride Level 100 mmol/L (98-107) Carbon Dioxide Level 28 mmol/L (21-32) Anion Gap 9 (6-14) Blood Urea Nitrogen 40 mg/dL (7-20) Creatinine 2.4 mg/dL (0.6-1.0) Estimated GFR (Cockcroft-Gault) 19.4 BUN/Creatinine Ratio 17 (6-20) Glucose Level 233 mg/dL (70-99) Calcium Level 8.8 mg/dL (8.5-10.1) Total Bilirubin 0.3 mg/dL (0.2-1.0) Aspartate Amino Transf (AST/SGOT) 55 U/L (15-37) Alanine Aminotransferase (ALT/SGPT) 37 U/L (14-59) Alkaline Phosphatase 73 U/L (46-116) Total Protein 6.9 g/dL (6.4-8.2) Albumin 3.2 g/dL (3.4-5.0) Albumin/Globulin Ratio 0.9 (1.0-1.7) Vitamin B12 Level 287 pg/mL (247-911) 25-Hydroxy Vitamin D Total 14.5 ng/mL (30.0-100.0) Thyroid Stimulating Hormone (TSH) 6.631 uIU/mL (0.358-3.74) Free Thyroxine 1.06 ng/dL (0.76-1.46) Free Triiodothyronine (T3) pg/mL 1.36 pg/mL (2.18-3.98) WINNIE SANTOS MD August 19, 2016 08:27
[2016-08-19 09:42] LABS: CALCIUM 8.5 mg/dL (8.5-10.1); CREATININE 2.1 mg/dL (0.6-1.0); GFR 22.7
[2016-08-19] MEDS: LEVOTHYROXINE 150 MCG TABLET PO SCH (10:29)
[2016-08-19] MEDS: DONEPEZIL HCL 10 MG TABLET. PO SCH (10:29)
[2016-08-19 10:42] VITALS: BP 123/64
--- NOTE | 2016-08-19 15:10 | PDOC ---
PROGRESS NOTES Assessment Assessment Mental status changes. Metabolic encephalopathy. Hallucinations. Confusion. Fall. UTI Renal failure. DM HTN HLD Hypothyroidism. Dementia . RECOMMENDATIONS/PLAN: Treat medical diseases. Treat UTI. UT/PT. FU with PCP. HCT and CCT: Negative for acute findings. EEG: Posterior dominant rhythm is slow for age. HISTORY OF THE PRESENT ILLNESS: 81-y-old female patient with above medical diseases has had a fall in her Assistance Living Apartment. She also has symptoms of generalized weakness and noted MS changes and confusion to be brought to the ER of [facility]. No focalized sensopty or motor deficits, but she was said to have hallucinations. Patient was unable to provide detail information about her hallucinations. PAST MEDICAL HISTORY: Please see above. PAST SURGERY HISTORY: No major surgery recently. ALLERGY: Unknown MEDICATIONS: Refer to [facility] HISTORY: Non contributory. SOCIAL HISTORY: Lives in Assistance Living apartment. Denies current smoking, drinking, and illicit drug use. REVIEW OF SYSTEMS: Constitutional: No malnutrition, or cachexia. Head: No traumatic brain or head injury. Skin: No edema, or rash. Ear: No infection. Eyes: No vision loss or color blindness. Nose: No bleeding or purulent discharges. Hearing: Hearing decrease. Neck: No injury. Breast: No history of cancer, masses,or discharges. Cardiac: HTN, HLD. Pulmonary: No COPD. GI: GERD. Urinary/genital: UTI. Endocrinologic: Diabetes Mellitus, hypothyroidism. Skeletomuscular: Generalized weakness. Neurological: see HP. Psychiatric: Denies drug use/abuse. Otherwise, not [id number] review of systems. PHYSICAL EXAMINATION: General appearance is in no acute distress. HEENT: Normocephalic and nontraumatic. Eyes, nose, ears, and throat are unremarkable. Neck is supple. No lymphadenopathy. No crepitus. Cardiovascular: S1, S2, regular rate and rhythm. Pulmonary: Clear to auscultation bilaterally. Abdomen: Bowel sounds are positive. Extremities: No rash, lesions, or edema. No restriction of range of motion NEUROLOGICAL EXAMINATION: Awake. Not oriented to time, place and person. PERRL. EOMI. CN: no focal findings. Muscle tone: within normal. Muscle strength: 5- DTR: 2 Plantar reflex: Neutral response bilaterally Gait: not examined in bed. Sensory exam: no acute abnormal findings. No cerebellar signs elicited. F-T-N test fine. Objective Objective Vital Signs Date Time Temp Pulse Resp B/P (MAP) Pulse Ox O2 Delivery O2 Flow Rate FiO2 08/19/16 10:42 97.7 79 20 123/64 (83) 96 Room Air 97.7 Intake and Output 08/19/16 07:00 Intake Total 2880 ml Output Total 1100 ml Balance 1780 ml Intake Oral 2880 ml Output Urine Total 1100 ml # Voids 9 # Bowel Movements 2 Vitals Signs Vitals VS - Last 72 Hours, by Label Date Time Temp Pulse Resp B/P (MAP) Pulse Ox O2 Delivery O2 Flow Rate FiO2 08/19/16 10:42 97.7 79 20 123/64 (83) 96 Room Air 97.7 08/19/16 08:21 80 115/60 08/19/16 08:00 Room Air 08/19/16 07:00 97.7 80 20 115/60 (78) 98 Room Air 97.7 08/18/16 22:38 98.6 83 19 132/68 (89) 96 Room Air 98.6 08/18/16 20:00 Room Air 08/18/16 19:00 99.0 84 19 129/57 (81) 96 Room Air 99.0 08/18/16 11:04 87 128/65 08/18/16 11:00 98.0 78 22 130/82 (98) 98 Room Air 98.0 08/18/16 08:00 Room Air 08/18/16 07:00 97.2 87 20 128/65 (86) 98 Room Air 97.2 Laboratory Laboratory Laboratory Tests Test 08/19/16 08:53 Sodium Level 140 mmol/L (136-145) Potassium Level 4.0 mmol/L (3.5-5.1) Chloride Level 105 mmol/L (98-107) Carbon Dioxide Level 26 mmol/L (21-32) Anion Gap 9 (6-14) Blood Urea Nitrogen 37 mg/dL (7-20) Creatinine 2.1 mg/dL (0.6-1.0) Estimated GFR (Cockcroft-Gault) 22.7 Glucose Level 202 mg/dL (70-99) Calcium Level 8.5 mg/dL (8.5-10.1) Microbiology 08/17/16 Urine Culture - Preliminary, Resulted 08/17/16 Urine Culture Result 1 (MOE) - Preliminary, Resulted Medication Medications Current Medications Donepezil HCl (Aricept) 10 mg DAILY PO Last administered on 08/19/16 10:29; Start 08/19/16 at 11:00 Simvastatin (Zocor) 80 mg QHS PO Last administered on 08/18/16 20:33; Start at 21:00 Trazodone HCl (Desyrel) 50 mg QHS PO Last administered on 08/18/16 20:33; Start 08/18/16 at 21:00 Comment Review of Relevant I have reviewed the following items nadia (where applicable) has been applied. SAURABH MALDONADO MD August 19, 2016 15:10
[2016-08-19 15:13] VITALS: BP 125/62
[2016-08-19 19:59] VITALS: BP 123/57
[2016-08-19] MEDS: SIMVASTATIN 40 MG TABLET. PO SCH (20:03)
[2016-08-19] MEDS: traZODone 50 MG TABLET. PO SCH (20:04)
[2016-08-19 23:59] VITALS: BP 119/59
[2016-08-20] VITALS (7 sets, daily range): BP systolic 116–145; BP diastolic 64–70
[2016-08-20] MEDS: PANTOPRAZOLE 40 MG TABLET.DR. PO SCH (06:35)
[2016-08-20] MEDS: LEVOTHYROXINE 150 MCG TABLET PO SCH (06:35)
--- NOTE | 2016-08-20 10:09 | PDOC ---
Provider Note Provider Note vss, creat down 2.1, dont know baseline - all po meds- plan is for snf when available, meds same AGNIESZKA ZIMMERMAN MD August 20, 2016 10:09
[2016-08-20] MEDS: ESTROGENS, CONJUGATED 0.3 MG TABLET PO SCH (11:12)
[2016-08-20] MEDS: LISINOPRIL 10 MG TABLET PO SCH (11:13)
[2016-08-20] MEDS: GLIMEPIRIDE 2 MG TABLET. PO SCH (11:13)
[2016-08-20] MEDS: SERTRALINE 50 MG TABLET. PO SCH (11:13)
[2016-08-20] MEDS: MEMANTINE 10 MG TABLET. PO SCH ×2 (11:13→20:53)
[2016-08-20] MEDS: DONEPEZIL HCL 10 MG TABLET. PO SCH (11:57)
[2016-08-20] MEDS ORDERED: ERGOCALCIFEROL (VITAMIN D2) 50,000 UNIT CAPSULE. PO SCH (12:00)
[2016-08-20] MEDS: traZODone 50 MG TABLET. PO SCH (20:53)
[2016-08-20] MEDS: SIMVASTATIN 40 MG TABLET. PO SCH (20:53)
[2016-08-20] MEDS: ACETAMINOPHEN 325 MG TABLET. PO PRN (21:29)
[2016-08-21 03:00] VITALS: BP 136/65
[2016-08-21] MEDS: LEVOTHYROXINE 150 MCG TABLET PO SCH (05:51)
[2016-08-21] MEDS: PANTOPRAZOLE 40 MG TABLET.DR. PO SCH (05:51)
[2016-08-21 07:00] VITALS: BP 155/66
[2016-08-21] MEDS: SERTRALINE 50 MG TABLET. PO SCH (08:26)
[2016-08-21] MEDS: DONEPEZIL HCL 10 MG TABLET. PO SCH (08:26)
[2016-08-21] MEDS: GLIMEPIRIDE 2 MG TABLET. PO SCH (08:26)
[2016-08-21] MEDS: MEMANTINE 10 MG TABLET. PO SCH ×2 (08:26→20:45)
[2016-08-21] MEDS: LISINOPRIL 10 MG TABLET PO SCH (08:27)
[2016-08-21] MEDS: ESTROGENS, CONJUGATED 0.3 MG TABLET PO SCH (08:27)
[2016-08-21] MEDS ORDERED: DEXTROSE 50% 25 GM / 50ML DISP.SYRIN. IV PRN (09:15)
--- NOTE | 2016-08-21 09:21 | PDOC ---
Provider Note Provider Note vss, no temp- no new sxs- awating snf- added D weekly re lab- coccyx AGNIESZKA Vora MD August 21, 2016 09:21
[2016-08-21 11:00] VITALS: BP 144/78
[2016-08-21 15:00] VITALS: BP 140/76
[2016-08-21 19:00] VITALS: BP 137/79
[2016-08-21] MEDS: ACETAMINOPHEN 325 MG TABLET. PO PRN (20:45)
[2016-08-21] MEDS: traZODone 50 MG TABLET. PO SCH (20:45)
[2016-08-21] MEDS: SIMVASTATIN 40 MG TABLET. PO SCH (20:45)
[2016-08-22] MEDS: LEVOTHYROXINE 150 MCG TABLET PO SCH (06:32)
[2016-08-22] MEDS: PANTOPRAZOLE 40 MG TABLET.DR. PO SCH (06:32)
[2016-08-22 07:00] VITALS: BP 134/63
[2016-08-22] MEDS: MEMANTINE 10 MG TABLET. PO SCH ×2 (08:51→22:45)
[2016-08-22] MEDS: SERTRALINE 50 MG TABLET. PO SCH (08:51)
[2016-08-22] MEDS: GLIMEPIRIDE 2 MG TABLET. PO SCH (08:51)
[2016-08-22] MEDS: DONEPEZIL HCL 10 MG TABLET. PO SCH (08:51)
[2016-08-22] MEDS: ESTROGENS, CONJUGATED 0.3 MG TABLET PO SCH (08:51)
[2016-08-22] MEDS: LISINOPRIL 10 MG TABLET PO SCH (08:52)
[2016-08-22 10:39] VITALS: BP 133/60
--- NOTE | 2016-08-22 12:12 | PDOC ---
Provider Note Provider Note vss, no new problems- await snf, same orders AGNIESZKA ZIMMERMAN MD August 22, 2016 12:12
[2016-08-22 15:14] VITALS: BP 135/62
[2016-08-22] MEDS: ACETAMINOPHEN 325 MG TABLET. PO PRN (17:49)
[2016-08-22 19:00] VITALS: BP 154/73
[2016-08-22] MEDS: SIMVASTATIN 40 MG TABLET. PO SCH (22:45)
[2016-08-22] MEDS: traZODone 50 MG TABLET. PO SCH (22:45)
[2016-08-22 23:00] VITALS: BP 149/69
[2016-08-23] MEDS: LEVOTHYROXINE 150 MCG TABLET PO SCH (06:35)
[2016-08-23] MEDS: PANTOPRAZOLE 40 MG TABLET.DR. PO SCH (06:35)
[2016-08-23 07:00] VITALS: BP 145/54
[2016-08-23] MEDS: GLIMEPIRIDE 2 MG TABLET. PO SCH (08:07)
[2016-08-23] MEDS: DONEPEZIL HCL 10 MG TABLET. PO SCH (08:08)
[2016-08-23] MEDS: ESTROGENS, CONJUGATED 0.3 MG TABLET PO SCH (08:08)
[2016-08-23] MEDS: SERTRALINE 50 MG TABLET. PO SCH (08:08)
[2016-08-23] MEDS: MEMANTINE 10 MG TABLET. PO SCH (08:08)
[2016-08-23] MEDS: LISINOPRIL 10 MG TABLET PO SCH (08:08)
[2016-08-23 11:02] VITALS: BP 138/57
--- NOTE | 2016-08-23 11:39 | PDOC ---
PROGRESS NOTES Assessment Problems Medical Problems: (1) Altered mental status Status: Acute (2) Dementia Status: Acute Mental status changes. Metabolic encephalopathy. Dementia Plan Treat medical diseases Will follow Subjective No complaints Objective Vital Signs Date Time Temp Pulse Resp B/P (MAP) Pulse Ox O2 Delivery O2 Flow Rate FiO2 08/23/16 11:02 99.0 67 18 138/57 (84) 97 Room Air 99.0 Intake and Output 08/23/16 07:00 Intake Total 1400 ml Balance 1400 ml Intake Oral 1400 ml # Voids 9 PHYSICAL EXAM Alert. Oriented only to person. PERRL. EOMI. CN: no focal findings. Muscle tone: normal. Muscle strength: 5 -/5 DTR: 2+ Plantar reflex: flexor Gait: not examined in bed. Sensory exam: no abnormal findings. No cerebellar signs elicited. Review of Relevant I have reviewed the following items nadia (where applicable) has been applied. Labs Laboratory Tests Test 08/21/16 15:55 08/21/16 20:43 Glucose (Fingerstick) 105 mg/dL (70-99) 150 mg/dL (70-99) Microbiology 08/17/16 Urine Culture - Final, Complete 08/17/16 Urine Culture Result 1 (MOE) - Final, Complete Medications Current Medications Ondansetron HCl (Zofran) 4 mg PRN Q8HRS PRN IV NAUSEA/VOMITING; Start 08/17/16 at 20:45; Stop 08/18/16 at 20:44; Status DC Acetaminophen (Tylenol) 650 mg PRN Q4HRS PRN PO FEVER; Start 08/17/16 at 20:45 ; Stop 08/18/16 at 20:44; Status DC Donepezil HCl (Aricept) 10 mg DAILY PO Last administered on 08/23/16 08:08; Start 08/19/16 at 11:00 Glimepiride (Amaryl) 2 mg DAILY08 PO Last administered on 08/23/16 08:07; Start 08/18/16 at 11:00 Levothyroxine Sodium (Synthroid) 150 mcg DAILY07 PO Last administered on 06:35; Start 08/18/16 at 11:00 Memantine (Namenda) 10 mg BID PO Last administered on 08/23/16 08:08; Start at 11:00 Pantoprazole Sodium (Protonix) 40 mg DAILY07 PO Last administered on 08/23/16 06:35; Start 08/18/16 at 11:00 Sertraline HCl (Zoloft) 50 mg DAILY PO Last administered on 08/23/16 08:08; Start 08/18/16 at 11:00 Trazodone HCl (Desyrel) 50 mg QHS PO Last administered on 08/22/16 22:45; Start 08/18/16 at 21:00 Estrogens Conjugated (Premarin) 0.45 mg DAILY PO Last administered on 08:08; Start 08/18/16 at 11:00 Lisinopril (Prinivil) 10 mg DAILY PO Last administered on 08/23/16 08:08; Start 08/18/16 at 11:00 Simvastatin (Zocor) 80 mg QHS PO Last administered on 08/22/16 22:45; Start at 21:00 Ergocalciferol (Vitamin D2) 50,000 unit WEEKLY PO Last administered on 11:18; Start 08/20/16 at 12:00 Acetaminophen (Tylenol) 650 mg PRN Q6HRS PRN PO MILD PAIN Last administered on 08/22/16 17:49; Start 08/20/16 at 21:15 Dextrose (Dextrose 50%-Water Syringe) 12.5 gm PRN Q15MIN PRN IV SEE COMMENTS; Start 08/21/16 at 09:15 Active Scripts Active Reported Ramipril 5 Mg Capsule 1 Cap PO DAILY Glimepiride 2 Mg Tablet 1 Tab PO DAILY Namenda (Memantine Hcl) 10 Mg Tablet 1 Tab PO BID Premarin (Estrogens, Conjugated) 0.45 Mg Tablet 1 Tab PO DAILY Simvastatin 80 Mg Tablet 1 Tab PO QHS Synthroid (Levothyroxine Sodium) 150 Mcg Tablet 1 Tab PO DAILY Donepezil Hcl 10 Mg Tablet 1 Tab PO DAILY Pantoprazole Sodium 40 Mg Tablet.dr 1 Tab PO DAILY Trazodone Hcl 50 Mg Tablet 1 Tab PO QHS Zoloft (Sertraline Hcl) 50 Mg Tablet 1 Tab PO DAILY Vitals/I & O Vital Sign - Last 24 Hours 08/22/16 08/22/16 08/22/16 08/22/16 15:14 19:00 20:00 23:00 Temp 97.9 98.5 98.7 97.9 98.5 98.7 Pulse 62 76 62 Resp 20 18 18 B/P (MAP) 135/62 (86) 154/73 (100) 149/69 (95) Pulse Ox 98 96 97 O2 Delivery Room Air Room Air Room Air Room Air 08/23/16 08/23/16 08/23/16 08/23/16 03:00 07:00 08:08 11:02 Temp 99.9 99.0 99.9 99.0 Pulse 66 66 67 Resp 18 18 B/P (MAP) 145/54 (84) 145/54 138/57 (84) Pulse Ox 94 97 O2 Delivery Room Air Room Air Room Air Intake and Output 08/22/16 08/22/16 08/23/16 15:00 23:00 07:00 Intake Total 500 ml 900 ml Balance 500 ml 900 ml FELICIA DE LA GARZA MD August 23, 2016 11:39
[2016-08-23 15:00] VITALS: BP 130/62
--- NOTE | 2016-08-23 17:58 | PDOC ---
GENERAL General: see discharge summary. Problems: VITAL SIGNS Vital Signs: Vital Signs Date Time Temp Pulse Resp B/P (MAP) Pulse Ox O2 Delivery O2 Flow Rate FiO2 08/23/16 15:00 99.3 67 18 130/62 (84) 97 Room Air 99.3 I & O I & O Intake and Output 08/23/16 07:00 Intake Total 1400 ml Balance 1400 ml Intake Oral 1400 ml # Voids 9 ALLERGIES Allergies: Allergies Coded Allergies Type Severity Reaction Last Updated Verified No Known Drug Allergies 08/17/16 No MEDS Medications: Current Medications Medications (Trade) Dose Ordered Sig/Cody Start Time Stop Time Status Last Admin Dose Admin Acetaminophen (Tylenol) 650 mg PRN Q6HRS PRN 08/20/16 21:15 08/23/16 16:30 DC 08/22/16 17:49 650 MG Dextrose (Dextrose 50%-Water Syringe) 12.5 gm PRN Q15MIN PRN 08/21/16 09:15 08/23/16 16:30 DC Donepezil HCl (Aricept) 10 mg DAILY 08/19/16 11:00 08/23/16 16:29 DC 08/23/16 08:08 10 MG Ergocalciferol (Vitamin D2) 50,000 unit WEEKLY 08/20/16 12:00 08/23/16 16:30 DC 08/20/16 11:18 50,000 UNIT Estrogens Conjugated (Premarin) 0.45 mg DAILY 08/18/16 11:00 08/23/16 16:30 DC 08/23/16 08:08 0.45 MG Glimepiride (Amaryl) 2 mg DAILY08 08/18/16 11:00 08/23/16 16:29 DC 08/23/16 08:07 2 MG Levothyroxine Sodium (Synthroid) 150 mcg DAILY07 08/18/16 11:00 08/23/16 16:29 DC 08/23/16 06:35 150 MCG Lisinopril (Prinivil) 10 mg DAILY 08/18/16 11:00 08/23/16 16:30 DC 08/23/16 08:08 10 MG Memantine (Namenda) 10 mg BID 08/18/16 11:00 08/23/16 16:29 DC 08/23/16 08:08 10 MG Ondansetron HCl (Zofran) 4 mg PRN Q8HRS PRN 08/17/16 20:45 08/18/16 20:44 DC Pantoprazole Sodium (Protonix) 40 mg DAILY07 08/18/16 11:00 08/23/16 16:29 DC 08/23/16 06:35 40 MG Sertraline HCl (Zoloft) 50 mg DAILY 08/18/16 11:00 08/23/16 16:30 DC 08/23/16 08:08 50 MG Simvastatin (Zocor) 80 mg QHS 08/18/16 21:00 08/23/16 16:30 DC 08/22/16 22:45 80 MG Trazodone HCl (Desyrel) 50 mg QHS 08/18/16 21:00 08/23/16 16:30 DC 08/22/16 22:45 50 MG WINNIE SANTOS MD August 23, 2016 17:58
--- NOTE | 2016-08-23 22:28 | DS ---
DATE OF DISCHARGE: 08/23/2016 PRIMARY DIAGNOSES: Mental status change with metabolic encephalopathy. ADDITIONAL DIAGNOSES: Mild underlying dementia, diabetes, acute renal failure, a fall earlier on the day of admission, hallucinations, hypertension, hyperlipidemia, and hypothyroidism. CHIEF COMPLAINT AND HISTORY OF PRESENT ILLNESS: This 81-year-old white female was admitted to the hospital with mental status change, encephalopathy and hallucinations on the day of admission through the Emergency Room after a second trip there. She had fallen earlier in the day and had been cleared with an initial visit of no evidence of any severe fractures etc., went home, began hallucinating, was brought back and admitted for the same. SUMMARY OF STAY: The patient was admitted. Initial labs suggested a possible urinary tract infection but culture was negative. Vitamin D was low at 14.5 and she was treated for the same. Her creatinine overnight came from 2.4 to 2.1, it was not rechecked, but will be at long term. Sugars were decent through the stay. TSH was mildly elevated at 6.6. CBC was essentially unremarkable other than a slight elevation of white count of 14,000 on admission and a sed rate of 65. CT scanning of the head and neck did not show any changes and she did improve slowly throughout the stay for no good reason she was found to be unsafe on her feet with balance etc., with the fall and was transferred to long term on the day of dismissal. DISPOSITION: The patient was transferred to long term. ADA diet. Activity as tolerated. PT and OT to follow ____ on exactly the same medication she was in the hospital. We will continue to follow her at [facility]. WINNIE SANTOS MD DR: SACHI/simón JOB#: [id number] / [id number]
== END 2016-08-23 16:29 | DRG 682 ==
LOC: ER 19:24 → 5 SOUTH 20:04 → OBSVTOIN 08-19 16:18
PROVIDERS: ADMIT Family Medicine; ATTEND Family Medicine
DX: N17.9 Acute kidney failure, unspecified (principal); G93.41 Metabolic encephalopathy; E78.00 Pure hypercholesterolemia, unspecified; E03.9 Hypothyroidism, unspecified; E78.5 Hyperlipidemia, unspecified; F03.90 Unspecified dementia, unspecified severity, without behavioral disturbance, psychotic disturbance, mood disturbance, and anxiety; I10 Essential (primary) hypertension; K21.9 Gastro-esophageal reflux disease without esophagitis; H40.9 Unspecified glaucoma; K58.9 Irritable bowel syndrome, unspecified; F32.9 Major depressive disorder, single episode, unspecified; E11.9 Type 2 diabetes mellitus without complications; F41.9 Anxiety disorder, unspecified; M19.90 Unspecified osteoarthritis, unspecified site; W19.XXXA Unspecified fall, initial encounter; Y93.89 Activity, other specified; Y99.8 Other external cause status; Y92.009 Unspecified place in unspecified non-institutional (private) residence as the place of occurrence of the external cause; Z79.899 Other long term (current) drug therapy
CPT/HCPCS: 36415; 70450; 72125; 80048; 80053; 81001; 82306; 82607; 82962; 84439; 84443; 84481; 85027; 85651; 87086; 95816; G0378; G0379; 97110; 97116; 97530; 97535

== ENCOUNTER 2018-07-24 09:51 | Inpatient (IN) | payer MEDICARE ==
[~2018-07-24] VITALS: Ht 162.6 cm; Wt 79.4 kg
[~2018-07-24 09:51] MED LIST changes: +DONE10TA7 PO; +ESTR0.45 PO; +GLIM2TAB2 PO; +LEVO150T PO; +MEMA10TA PO; +PANT40TA5 PO; +RAMI5CAP50 PO; +SERT50TA PO; +SIMV80TA17 PO; +TRAZ-118 PO; +[UNRECOGNIZED DRUG - OTHER]; +[UNRECOGNIZED DRUG - OTHER]; +aricept; +flexeril; +namenda; +ramipril; +synthroid; +trazadone; +zoloft
[2018-07-24] MEDS ORDERED: fentaNYL PF VIAL 100 MCG/2 ML VIAL IV ONE (10:30)
[2018-07-24 10:37] LABS: BASO # 0.1 x10^3/uL (0.0-0.2); BASO % 1 % (0-3); EOS # 0.2 x10^3/uL (0.0-0.7); EOS % 2 % (0-3); HEMATOCRIT 32.9 % (36.0-47.0); LYMPH # 3.1 x10^3/uL (1.0-4.8); LYMPH % 25 % (24-48); MEAN CORPUSCULAR HEMOGLOBIN 31 pg (25-35); MEAN CORPUSCULAR HGB CONC 33 g/dL (31-37); MEAN CORPUSCULAR VOLUME 94 fL (79-100); MONO # 0.7 x10^3/uL (0.0-1.1); MONO % 6 % (0-9); NEUT % 66 % (31-73); PLATELET COUNT 281 x10^3/uL (140-400); RED BLOOD COUNT 3.49 x10^6/uL (3.50-5.40); RED CELL DISTRIBUTION WIDTH 13.6 % (11.5-14.5); WHITE BLOOD COUNT 12.1 x10^3/uL (4.0-11.0)
[2018-07-24] MEDS ORDERED: cefTRIAXone IV Push 1 GM VIAL. IVP ONE ×2 (11:27→11:45)
[2018-07-24 11:35] LABS: ALBUMIN 3.9 g/dL (3.4-5.0); ALBUMIN/GLOBULIN RATIO 1.4 (1.0-1.7); CALCIUM 9.5 mg/dL (8.5-10.1); CREATININE 1.4 mg/dL (0.6-1.0); POTASSIUM 4.7 mmol/L (3.5-5.1); TOTAL BILIRUBIN 0.4 mg/dL (0.2-1.0); TOTAL PROTEIN 6.6 g/dL (6.4-8.2)
--- NOTE | 2018-07-24 11:36 | RAD ---
Examination: 2 views of the right hip with frontal view the pelvis HISTORY: History of fall, right hip pain COMPARISON: None available. Findings: The bilateral femoral heads within the acetabula. Moderate joint space loss identified in the bilateral hip joint likely degeneration. There is no obvious acute fracture or dislocation identified IMPRESSION: 1. No acute osseous findings. 2. Moderate degenerative changes bilateral hip joints. Electronically signed by: Toby Jordan MD (07/24/2018 11:10 AM) [facility]
[2018-07-24 12:11] LABS: BACTERIA,URINE MODERATE /HPF (0-FEW); BILIRUBIN,URINE NEGATIVE (NEG); CLARITY,URINE CLEAR; COLOR,URINE YELLOW; NITRITE,URINE NEGATIVE (NEG); PH,URINE 6.5; PROTEIN,URINE NEGATIVE (NEG-TRACE); RBC,URINE OCC /HPF (0-2); SQUAMOUS EPITHELIAL CELL,UR OCC /LPF; UROBILINOGEN,URINE 0.2 mg/dL (0.2 mg/dL); WBC,URINE TNTC /HPF (0-4)
--- NOTE | 2018-07-24 12:13 | RAD ---
Examination: CT head and cervical spine without contrast CT HEAD INDICATION: found on floor, dementia COMPARISON: 02/11/2018 Exposure: One or more of the following individualized dose reduction techniques were utilized for this examination: 1. Automated exposure control 2. Adjustment of the mA and/or kV according to patient size 3. Use of iterative reconstruction technique TECHNIQUE: 5 mm contiguous axial images were obtained from the skull base to the vertex in both bone and soft tissue algorithm. FINDINGS: Moderate bilateral periventricular white matter hypodensities likely chronic small vessel ischemic disease. No evidence of acute intracranial hemorrhage. No extra-axial fluid collections. No mass effect or midline shift. Ventricular size is appropriate. Basal cisterns are patent. No fractures identified.Tobar-white differentiation is preserved.Globes and orbits are within normal limits. Paranasal sinuses and mastoid air cells are clear. IMPRESSION: No acute intracranial findings. CT CERVICAL SPINE INDICATION: found on floor, dementia
PREVIOUS COMPARISON: None Available. Technique: 2.5 mm contiguous axial images were obtained from the skull base through the cervicothoracic junction in both bone and soft tissue algorithm. Additional sagittal and coronal reconstructions were also performed. FINDINGS: Vertebral body heights are maintained. Cervical lordosis is preserved. The lateral masses of C1 are aligned upon C2. Bony fusion of the C4-C7 vertebral bodies identified. The bony canal is patent throughout. Moderate intervertebral disc height loss identified in the cervical spine. The paraspinous soft tissues are unremarkable. Visualized intracranial contents are unremarkable. Lung apices are clear. IMPRESSION: 1. No acute fracture of the cervical spine. Correlate clinically. 2. Bony fusion of C4-C7 vertebral bodies identified. Moderate multilevel degenerative changes cervical spine. Electronically signed by: Toby Jordan MD (07/24/2018 12:11 PM) [facility]
--- NOTE | 2018-07-24 12:48 | PHYS DOC ---
Past Medical History Past Medical History: Dementia, Diabetes-Type II, High Cholesterol, Hypertension, Hypothyroid Past Surgical History: Other Additional Past Surgical Histo: UNKNOWN Alcohol Use: None Drug Use: None Adult General Chief Complaint Chief Complaint: MECHANICAL FALL HPI HPI Patient is a 83 year old F with dementia who lives in assisted living. Today her daughter came to see her and found her lying on the floor in the bathroom. EMS was called and brought pt to ER. She is alert but pleasantly confused. She tells me that her R hip is hurting. Daughter reports that pt seems weaker then her normal self. I am completing this note but [employer] went down and I also completed paper chart during pt's ER stay and admission. Review of Systems Review of Systems ROS obtained from pt but she does have dementia. Constitutional: Denies fever or chills Respiratory: Denies cough or shortness of breath Cardiovascular: Denies chest pain GI: Denies abdominal pain, nausea, vomiting, bloody stools or diarrhea : Denies dysuria or hematuria Musculoskeletal: Denies back pain. Reports R hip pain. Integument: Denies rash or skin lesions Neurologic: Denies headache, focal weakness or sensory changes All other systems were reviewed and found to be within normal limits, except as documented in this note. Current Medications Current Medications Current Medications Medications (Trade) Dose Ordered Sig/Cody Start Time Stop Time Status Last Admin Dose Admin Ceftriaxone Sodium (Rocephin) 1 gm 1X ONCE 07/24/18 11:45 07/24/18 12:02 DC Fentanyl Citrate (Fentanyl 2ml Vial) 25 mcg 1X ONCE 07/24/18 10:30 07/24/18 10:34 DC 07/24/18 10:40 25 MCG Sodium Chloride 1,000 ml @ 75 mls/hr [id number] 07/24/18 12:49 07/25/18 12:48 DC 07/25/18 08:42 75 MLS/HR Allergies Allergies Allergies Coded Allergies Type Severity Reaction Last Updated Verified No Known Drug Allergies 08/17/16 No Physical Exam Physical Exam Constitutional: Well developed, well nourished, no acute distress, non-toxic appearance. HENT: Normocephalic, atraumatic, bilateral external ears normal, oropharynx moist, no oral exudates, nose normal. Neck: Normal range of motion, no tenderness, supple, no stridor. Cardiovascular:Heart rate regular rhythm, no murmur Lungs & Thorax: Bilateral breath sounds clear to auscultation Abdomen: Bowel sounds normal, soft, no tenderness, no masses, no pulsatile masses. Skin: Warm, dry, no erythema, no rash. Back: No tenderness, no CVA tenderness. Extremities: R hip pain, minimal pain on palpation. No obvious leg shortening or rotation Neurologic: Alert and oriented X 1, normal motor function, normal sensory function, no focal deficits noted. Psychologic: Affect normal, judgement normal, mood normal. Current Patient Data Vital Signs Vital Signs Date Time Temp Pulse Resp B/P (MAP) Pulse Ox O2 Delivery O2 Flow Rate FiO2 07/24/18 09:57 97.9 75 20 188/88 (121) 95 Room Air 97.9 Lab Values Laboratory Tests Test 07/24/18 10:05 07/24/18 10:07 07/24/18 10:50 White Blood Count 12.1 x10^3/uL (4.0-11.0) H Red Blood Count 3.49 x10^6/uL (3.50-5.40) L Hemoglobin 11.0 g/dL (12.0-15.5) L Hematocrit 32.9 % (36.0-47.0) L Mean Corpuscular Volume 94 fL (79-100) Mean Corpuscular Hemoglobin 31 pg (25-35) Mean Corpuscular Hemoglobin Concent 33 g/dL (31-37) Red Cell Distribution Width 13.6 % (11.5-14.5) Platelet Count 281 x10^3/uL (140-400) Neutrophils (%) (Auto) 66 % (31-73) Lymphocytes (%) (Auto) 25 % (24-48) Monocytes (%) (Auto) 6 % (0-9) Eosinophils (%) (Auto) 2 % (0-3) Basophils (%) (Auto) 1 % (0-3) Neutrophils # (Auto) 8.0 x10^3uL (1.8-7.7) H Lymphocytes # (Auto) 3.1 x10^3/uL (1.0-4.8) Monocytes # (Auto) 0.7 x10^3/uL (0.0-1.1) Eosinophils # (Auto) 0.2 x10^3/uL (0.0-0.7) Basophils # (Auto) 0.1 x10^3/uL (0.0-0.2) Sodium Level 140 mmol/L (136-145) Potassium Level 4.7 mmol/L (3.5-5.1) Chloride Level 104 mmol/L (98-107) Carbon Dioxide Level 25 mmol/L (21-32) Anion Gap 11 (6-14) Blood Urea Nitrogen 25 mg/dL (7-20) H Creatinine 1.4 mg/dL (0.6-1.0) H Estimated GFR (Cockcroft-Gault) 36.0 BUN/Creatinine Ratio 18 (6-20) Glucose Level 136 mg/dL (70-99) H Calcium Level 9.5 mg/dL (8.5-10.1) Total Bilirubin 0.4 mg/dL (0.2-1.0) Aspartate Amino Transferase (AST) 17 U/L (15-37) Alanine Aminotransferase (ALT) 18 U/L (14-59) Alkaline Phosphatase 62 U/L (46-116) Creatine Kinase 86 U/L (26-192) Creatine Kinase MB (Mass) 1.5 ng/mL (0.0-3.6) Creatine Kinase MB Relative Index 1.7 % (0-4) Troponin I Quantitative < 0.017 ng/mL (0.000-0.055) Total Protein 6.6 g/dL (6.4-8.2) Albumin 3.9 g/dL (3.4-5.0) Albumin/Globulin Ratio 1.4 (1.0-1.7) Glucose (Fingerstick) 127 mg/dL (70-99) H Urine Collection Type U cath Urine Color Yellow Urine Clarity Clear Urine pH 6.5 Urine Specific [place] 1.010 Urine Protein Negative mg/dL (NEG-TRACE) Urine Glucose (UA) Negative mg/dL (NEG) Urine Ketones (Stick) Negative mg/dL (NEG) Urine Blood Negative (NEG) Urine Nitrite Negative (NEG) Urine Bilirubin Negative (NEG) Urine Urobilinogen Dipstick 0.2 mg/dL (0.2 mg/dL) Urine Leukocyte Esterase Large (NEG) Urine RBC Occ /HPF (0-2) Urine WBC Tntc /HPF (0-4) Urine Squamous Epithelial Cells Occ /LPF Urine Transitional Epithelial Cells Occ /LPF Urine Bacteria Moderate /HPF (0-FEW) Laboratory Tests 07/24/18 10:05 Laboratory Tests 07/24/18 10:05 EKG EKG [] Radiology/Procedures Radiology/Procedures [] Course & Med Decision Making Course & Med Decision Making Pertinent Labs and Imaging studies reviewed. (See chart for details) Pt's daughter arrived and was able to give some more history. Pt's mentation and confusion are at baseline. She also has problems with R sided sciatica so this could be what pt is telling me hurts. Pt's imaging reassuring. R hip shows significant arthritis but no acute osseous injury. Pt does have a UTI and with her living alone in assisted living and being weak and having the fall, have discussed admission for IV abx and fluids and daughter and pt agree. Dragon Disclaimer Dragon Disclaimer This electronic medical record was generated, in whole or in part, using a voice recognition dictation system. Departure Departure Impression: Primary Impression: Urinary tract infection Additional Impressions: Fall Weakness Disposition: ADMITTED INPATIENT Admitting Physician: Winnie Santos Condition: STABLE Referrals: WINNIE SANTOS MD (PCP) Problem Qualifiers GABBY WALDEN Jul 24, 2018 12:48
--- NOTE | 2018-07-24 13:44 | EKG ---
[facility] [address] [place] [address] Test Date: 2018-07-24 Test Time: 10:46:33 Pat Name: CARL MIKE Department: Room: 538 1 Gender: F Head Waitress: : [id number] Requested By: GABBY WALDEN Order Number: [id number] Reading MD: Milton Aden Measurements Intervals Claude Rate: 64 P: 49 LA: 180 QRS: 24 QRSD: 98 T: 39 QT: 418 QTc: 435 Interpretive Statements SINUS RHYTHM NONSPECIFIC ST-T WAVE CHANGES. Electronically Signed On 07-27-2018 9:41:24 CDT by Milton Aden
[2018-07-24] MEDS ORDERED: DICL75TA PO (19:32)
[2018-07-24] MEDS ORDERED: LEVO88TA4 PO (19:32)
[2018-07-24] MEDS ORDERED: LOSA-73 PO (19:32)
[2018-07-24] MEDS ORDERED: ESTR1TAB15 PO (19:32)
--- NOTE | 2018-07-24 19:36 | NUR ---
Took over care from Leslie NAVA. The admission was paper charted from the previous shift. Please see chart.
[2018-07-24] MEDS: IV NORMAL SALINE 1000ML BAG 1,000 ML IV SCH (19:52)
--- NOTE | 2018-07-24 19:58 | NUR ---
Non administered Rocephin, given by nursing staff on previous shift while [employer] system was down
[2018-07-24] MEDS: MEMANTINE 10 MG TABLET. PO SCH (21:05)
[2018-07-24] MEDS: SIMVASTATIN 40 MG TABLET. PO SCH (21:05)
[2018-07-24] MEDS: traZODone 50 MG TABLET. PO SCH (21:05)
[2018-07-24 23:00] VITALS: BP 147/66
[2018-07-25 03:00] VITALS: BP 133/85
[2018-07-25 07:00] VITALS: BP 186/62
[2018-07-25] MEDS: DONEPEZIL HCL 10 MG TABLET. PO SCH (07:56)
[2018-07-25] MEDS: GLIMEPIRIDE 2 MG TABLET. PO SCH (07:56)
[2018-07-25] MEDS: MEMANTINE 10 MG TABLET. PO SCH ×2 (07:56→21:10)
[2018-07-25] MEDS: SERTRALINE 50 MG TABLET. PO SCH (07:56)
--- NOTE | 2018-07-25 08:09 | PDOC ---
GENERAL General: see dictated H&P. VITAL SIGNS Vital Signs: Vital Signs Date Time Temp Pulse Resp B/P (MAP) Pulse Ox O2 Delivery O2 Flow Rate FiO2 07/25/18 07:00 97.7 83 18 186/62 (103) 94 Room Air 97.7 I & O I & O Intake and Output 07/25/18 07:00 Intake Total 50 ml Balance 50 ml Intake Oral 50 ml # Voids 2 ALLERGIES Allergies: Allergies Coded Allergies Type Severity Reaction Last Updated Verified No Known Drug Allergies 08/17/16 No MEDS Medications: Current Medications Medications (Trade) Dose Ordered Sig/Cody Start Time Stop Time Status Last Admin Dose Admin Ceftriaxone Sodium (Rocephin) 1 gm 1X ONCE 07/24/18 11:45 07/24/18 12:02 DC Donepezil HCl (Aricept) 10 mg DAILY 07/25/18 09:00 07/25/18 07:56 10 MG Fentanyl Citrate (Fentanyl 2ml Vial) 25 mcg 1X ONCE 07/24/18 10:30 07/24/18 10:34 DC 07/24/18 10:40 25 MCG Glimepiride (Amaryl) 2 mg DAILY 07/25/18 09:00 07/25/18 07:56 2 MG Memantine (Namenda) 10 mg BID 07/24/18 21:00 07/25/18 07:56 10 MG Sertraline HCl (Zoloft) 50 mg DAILY 07/25/18 09:00 07/25/18 07:56 50 MG Simvastatin (Zocor) 80 mg QHS 07/24/18 21:00 07/24/18 21:05 80 MG Sodium Chloride 1,000 ml @ 75 mls/hr [id number] 07/24/18 12:49 07/25/18 12:48 07/24/18 19:52 75 MLS/HR Trazodone HCl (Desyrel) 50 mg QHS 07/24/18 21:00 07/24/18 21:05 50 MG LAB Lab: Laboratory Tests Test 07/24/18 10:05 07/24/18 10:07 07/24/18 10:50 07/24/18 14:02 White Blood Count 12.1 x10^3/uL (4.0-11.0) Red Blood Count 3.49 x10^6/uL (3.50-5.40) Hemoglobin 11.0 g/dL (12.0-15.5) Hematocrit 32.9 % (36.0-47.0) Mean Corpuscular Volume 94 fL (79-100) Mean Corpuscular Hemoglobin 31 pg (25-35) Mean Corpuscular Hemoglobin Concent 33 g/dL (31-37) Red Cell Distribution Width 13.6 % (11.5-14.5) Platelet Count 281 x10^3/uL (140-400) Neutrophils (%) (Auto) 66 % (31-73) Lymphocytes (%) (Auto) 25 % (24-48) Monocytes (%) (Auto) 6 % (0-9) Eosinophils (%) (Auto) 2 % (0-3) Basophils (%) (Auto) 1 % (0-3) Neutrophils # (Auto) 8.0 x10^3uL (1.8-7.7) Lymphocytes # (Auto) 3.1 x10^3/uL (1.0-4.8) Monocytes # (Auto) 0.7 x10^3/uL (0.0-1.1) Eosinophils # (Auto) 0.2 x10^3/uL (0.0-0.7) Basophils # (Auto) 0.1 x10^3/uL (0.0-0.2) Sodium Level 140 mmol/L (136-145) Potassium Level 4.7 mmol/L (3.5-5.1) Chloride Level 104 mmol/L (98-107) Carbon Dioxide Level 25 mmol/L (21-32) Anion Gap 11 (6-14) Blood Urea Nitrogen 25 mg/dL (7-20) Creatinine 1.4 mg/dL (0.6-1.0) Estimated GFR (Cockcroft-Gault) 36.0 BUN/Creatinine Ratio 18 (6-20) Glucose Level 136 mg/dL (70-99) Calcium Level 9.5 mg/dL (8.5-10.1) Total Bilirubin 0.4 mg/dL (0.2-1.0) Aspartate Amino Transf (AST/SGOT) 17 U/L (15-37) Alanine Aminotransferase (ALT/SGPT) 18 U/L (14-59) Alkaline Phosphatase 62 U/L (46-116) Creatine Kinase 86 U/L (26-192) Creatine Kinase MB (Mass) 1.5 ng/mL (0.0-3.6) Creatine Kinase MB Relative Index 1.7 % (0-4) Troponin I Quantitative < 0.017 ng/mL (0.000-0.055) Total Protein 6.6 g/dL (6.4-8.2) Albumin 3.9 g/dL (3.4-5.0) Albumin/Globulin Ratio 1.4 (1.0-1.7) Glucose (Fingerstick) 127 mg/dL (70-99) 99 mg/dL (70-99) Urine Collection Type U cath Urine Color Yellow Urine Clarity Clear Urine pH 6.5 Urine Specific [place] 1.010 Urine Protein Negative mg/dL (NEG-TRACE) Urine Glucose (UA) Negative mg/dL (NEG) Urine Ketones (Stick) Negative mg/dL (NEG) Urine Blood Negative (NEG) Urine Nitrite Negative (NEG) Urine Bilirubin Negative (NEG) Urine Urobilinogen Dipstick 0.2 mg/dL (0.2 mg/dL) Urine Leukocyte Esterase Large (NEG) Urine RBC Occ /HPF (0-2) Urine WBC Tntc /HPF (0-4) Urine Squamous Epithelial Cells Occ /LPF Urine Transitional Epithelial Cells Occ /LPF Urine Bacteria Moderate /HPF (0-FEW) Test 07/24/18 19:34 07/25/18 07:42 Glucose (Fingerstick) 133 mg/dL (70-99) 139 mg/dL (70-99) WINNIE SANTOS MD July 25, 2018 08:09
[2018-07-25] MEDS: IV NORMAL SALINE 1000ML BAG 1,000 ML IV SCH (08:42)
[2018-07-25] MEDS: cefTRIAXone IV Push 1 GM VIAL. IVP SCH (08:42)
--- NOTE | 2018-07-25 08:58 | HP ---
ADMIT DATE: 07/24/2018 CHIEF COMPLAINT AND HISTORY OF PRESENT ILLNESS: This 83-year-old white female lives in assisted living. Daughter came to see her on the day of admission, found her lying on the floor in the bathroom. She was brought to the ER where she was reporting urinary tract infection and inability to transfer or walk, etc. and admitted for treatment of the same. She did complain of her right hip to some extent as her only major complaint. She had imaging of the same that was negative as well as a head and cervical CT spine showing no acute abnormalities. PAST MEDICAL HISTORY: Remarkable for dementia, also remarkable for some depression. She has diabetes, hyperlipidemia, hypertension, hypothyroidism. MEDICATIONS: Brought with the patient, listed on the computer and have been addressed. ALLERGIES: She has no known drug allergies. SOCIAL HISTORY: She is , nonsmoker, nondrinker, does not use drugs. Has very supportive family. FAMILY HISTORY: Noncontributory. REVIEW OF SYSTEMS: As mentioned above. PHYSICAL EXAMINATION: GENERAL: She is a well-developed, well-nourished white female, appears pleasant. VITAL SIGNS: Stable. She is afebrile. HEAD, EYES, EARS, NOSE AND THROAT: Remarkable for glasses. NECK: Supple without lymphadenopathy or thyromegaly. CHEST: Clear to auscultation and percussion. HEART: Regular rate and rhythm without S3, S4, or murmur. ABDOMEN: Soft, nontender, without hepatosplenomegaly or masses. There is no CVA tenderness present. EXTREMITIES: Without cyanosis, clubbing or edema. She has full range of motion. NEUROLOGIC: Nonfocal, although her speech pattern this morning was just one or two words. She is unable to get out, which normally. When I have seen her last, we were able to have a conversation, although she was confused. LABORATORY DATA: On admission reveals a white count of 12,100, with a left shift. Creatinine is 1.4. Imaging as noted above. Urine shows large leukocyte esterase and too numerous to count white blood cells. IMPRESSION: Fall, probably secondary to urinary tract infection with weakness and inability to do self-care at this point in time. PLAN: The patient has been admitted. She will be given ongoing Rocephin daily until urine cultures are available. Therapy will be asked to see her, with anticipation she may need a SNU stay prior to back home. WINNIE SANTOS MD DR: SACHI/simón JOB#: [id number] / [id number]
--- NOTE | 2018-07-25 09:17 | NUR ---
SW consulted for possible SNU. Chart reviewed. SW requested for PT/OT order to assess skilled needs.
[2018-07-25 11:00] VITALS: BP 146/54
[2018-07-25 15:00] VITALS: BP 143/83
[2018-07-25 19:00] VITALS: BP 165/53
[2018-07-25] MEDS: traZODone 50 MG TABLET. PO SCH (21:10)
[2018-07-25] MEDS: SIMVASTATIN 40 MG TABLET. PO SCH (21:10)
[2018-07-25 22:55] VITALS: BP 153/70
[2018-07-26 03:00] VITALS: BP 149/95
[2018-07-26 07:00] VITALS: BP 148/56
[2018-07-26] MEDS: GLIMEPIRIDE 2 MG TABLET. PO SCH (08:44)
[2018-07-26] MEDS: MEMANTINE 10 MG TABLET. PO SCH ×2 (08:44→20:28)
[2018-07-26] MEDS: SERTRALINE 50 MG TABLET. PO SCH (08:44)
[2018-07-26] MEDS: DONEPEZIL HCL 10 MG TABLET. PO SCH (08:44)
[2018-07-26] MEDS: DICLOFENAC SODIUM 25 MG TABLET.DR PO SCH ×2 (08:46→20:29)
[2018-07-26] MEDS: ESTRADIOL 1 MG TABLET. PO SCH (08:46)
[2018-07-26] MEDS: LEVOTHYROXINE 88 MCG TABLET PO SCH (08:46)
[2018-07-26] MEDS: LOSARTAN POTASSIUM 50 MG TABLET. PO SCH (08:46)
--- NOTE | 2018-07-26 09:23 | NUR ---
SW following pt. Spoke with pt and daughter via phone about SNU options. Both agreeable with [facility]. SW phoned and faxed referral to [facility]. Pt acceptance and admission pending. Will continue to follow.
[2018-07-26] MEDS: cefTRIAXone IV Push 1 GM VIAL. IVP SCH (11:01)
[2018-07-26 11:15] VITALS: BP 144/63
--- NOTE | 2018-07-26 13:29 | NUR ---
Pt has been accepted at pending insurance auth. Insurance auth pending. Will continue to follow.
[2018-07-26 15:00] VITALS: BP 137/67
--- NOTE | 2018-07-26 16:09 | NUR ---
SW following pt. Insurance has approved SN[facility] and [facility] will have a bed tomorrow.
[2018-07-26 19:00] VITALS: BP 135/64
[2018-07-26] MEDS: traZODone 50 MG TABLET. PO SCH (20:28)
[2018-07-26] MEDS: CEFDINIR 300 MG CAPSULE PO SCH (20:29)
[2018-07-26] MEDS: SIMVASTATIN 40 MG TABLET. PO SCH (20:29)
--- NOTE | 2018-07-26 22:25 | PN ---
DATE: 07/26/2018 LOCATION: Room 538. SUBJECTIVE: The patient is awake and alert, voices no complaints. Nursing has no significant concerns. In addition, she is pleasantly mildly confused, again speech is definitely not still at her baseline as it is only one or two words at a time and mostly nonsensical. OBJECTIVE: VITAL SIGNS: Stable. She is afebrile. Blood pressure is somewhat elevated and home meds including losartan were restarted, which were ordered to be on admission, but somehow that did not get started as well as the Synthroid. Sugars have been good. Urine culture is still pending. CHEST: Clear. HEART: Regular. ABDOMEN: Benign. Therapy is recommending intermediate at this point in time. After initial evaluation, we will put in orders for the same. IMPRESSION: 1. Fall with weakness, complicated by urinary tract infection. 2. Dementia with worsening encephalopathy at this point from her baseline. 3. Diabetes. PLAN: Continue present care. Await final cultures, skilled evaluation and discharge. WINNIE SANTOS MD DR: SACHI/simón JOB#: [id number] / [id number]
[2018-07-26 23:00] VITALS: BP 141/60
[2018-07-27 03:00] VITALS: BP 145/71
[2018-07-27] MEDS: LEVOTHYROXINE 88 MCG TABLET PO SCH (05:31)
[2018-07-27 06:21] LABS: CALCIUM 8.7 mg/dL (8.5-10.1); CREATININE 1.6 mg/dL (0.6-1.0); GFR 30.9
[2018-07-27 06:28] LABS: BASO # 0.1 x10^3/uL (0.0-0.2); BASO % 1 % (0-3); EOS # 0.3 x10^3/uL (0.0-0.7); EOS % 3 % (0-3); HEMATOCRIT 32.1 % (36.0-47.0); HEMOGLOBIN 10.9 g/dL (12.0-15.5); LYMPH # 3.2 x10^3/uL (1.0-4.8); LYMPH % 31 % (24-48); MEAN CORPUSCULAR HEMOGLOBIN 32 pg (25-35); MEAN CORPUSCULAR HGB CONC 34 g/dL (31-37); MEAN CORPUSCULAR VOLUME 95 fL (79-100); MONO # 0.7 x10^3/uL (0.0-1.1); MONO % 7 % (0-9); NEUT # 5.9 x10^3uL (1.8-7.7); NEUT % 58 % (31-73); PLATELET COUNT 271 x10^3/uL (140-400); RED CELL DISTRIBUTION WIDTH 13.6 % (11.5-14.5); WHITE BLOOD COUNT 10.2 x10^3/uL (4.0-11.0)
[2018-07-27] MEDS ORDERED: CEFD300C PO (08:16)
--- NOTE | 2018-07-27 08:17 | SNU/HH DC ---
DISCHARGE ORDERS DISCHARGE INFORMATION: DISCHARGE DATE: July 27, 2018 FINAL DIAGNOSIS Problems Medical Problems: (1) Fall Status: Acute (2) Urinary tract infection Status: Acute (3) Weakness Status: Acute CONDITION ON DISCHARGE: Stable CODE STATUS: Code Status: Full NURSING HOME: SNF STAY <30 DAYS: Yes HOSPICE: HOSPICE: No HOSPICE EVAL & TREAT: No LTAC: ADMIT TO LTAC: No POST DISCHARGE ORDERS: ACTIVITY ORDERS: Activity as tolerated WEIGHT BEARING STATUS: As tolerated DIET AFTER DISCHARGE: ADA CHECKS AFTER DISCHARGE: CHECKS AFTER DISCHARGE: Check blood press - daily TREATMENT/EQUIPMENT ORDERS: ADAPTIVE EQUIPMENT NEEDED: Front wheeled walker Physical Therapy For: Evalulation/Treatment Occupational Therapy For: Evaluation/Treatment DISCHARGE MEDICATIONS: Home Meds Reported Medications Estradiol (ESTRADIOL) 1 Mg Tablet, 1 TAB PO DAILY for ., #30 TAB 11 Refills 07/24/18 Losartan Potassium (LOSARTAN POTASSIUM) 50 Mg Tablet, 50 MG PO DAILY for HYPERTENSION, TAB 07/24/18 Diclofenac Sodium (DICLOFENAC SODIUM) 75 Mg Tablet.dr, 1 TAB PO BID for inflammation, #60 TAB 1 Refill 07/24/18 Levothyroxine Sodium (LEVOTHYROXINE SODIUM) 88 Mcg Tablet, 1 TAB PO DAILY for hypothyroid, #30 TAB 5 Refills 07/24/18 Glimepiride (GLIMEPIRIDE) 2 Mg Tablet, 1 TAB PO DAILY, #30 TAB 5 Refills 08/18/16 Memantine Hcl (NAMENDA) 10 Mg Tablet, 1 TAB PO BID, #180 TAB 1 Refill 08/18/16 Simvastatin (SIMVASTATIN) 80 Mg Tablet, 1 TAB PO QHS, #90 TAB 3 Refills 08/18/16 Donepezil Hcl (DONEPEZIL HCL) 10 Mg Tablet, 1 TAB PO DAILY, #90 TAB 1 Refill 08/18/16 Trazodone Hcl (TRAZODONE HCL) 50 Mg Tablet, 1 TAB PO QHS, #30 TAB 1 Refill 08/18/16 Sertraline Hcl (ZOLOFT) 50 Mg Tablet, 1 TAB PO DAILY, #30 TAB 2 Refills 08/18/16 Discontinued Reported Medications Ramipril (RAMIPRIL) 5 Mg Capsule, 1 CAP PO DAILY, #30 CAP 5 Refills 08/18/16 Estrogens, Conjugated (PREMARIN) 0.45 Mg Tablet, 1 TAB PO DAILY, #30 TAB 11 Refills 08/18/16 Levothyroxine Sodium (SYNTHROID) 150 Mcg Tablet, 1 TAB PO DAILY, #30 TAB 5 Refills 08/18/16 Pantoprazole Sodium (PANTOPRAZOLE SODIUM) 40 Mg Tablet.dr, 1 TAB PO DAILY, #30 TAB 3 Refills 08/18/16 WINNIE SANTOS MD July 27, 2018 08:17
[2018-07-27] MEDS: CEFDINIR 300 MG CAPSULE PO SCH (09:28)
[2018-07-27] MEDS: DONEPEZIL HCL 10 MG TABLET. PO SCH (09:28)
[2018-07-27] MEDS: ESTRADIOL 1 MG TABLET. PO SCH (09:28)
[2018-07-27 09:29] VITALS: BP 145/71
[2018-07-27] MEDS: DICLOFENAC SODIUM 25 MG TABLET.DR PO SCH (09:29)
[2018-07-27] MEDS: GLIMEPIRIDE 2 MG TABLET. PO SCH (09:29)
[2018-07-27] MEDS: MEMANTINE 10 MG TABLET. PO SCH (09:29)
[2018-07-27] MEDS: LOSARTAN POTASSIUM 50 MG TABLET. PO SCH (09:29)
[2018-07-27] MEDS: SERTRALINE 50 MG TABLET. PO SCH (09:29)
--- NOTE | 2018-07-27 10:19 | NUR ---
SW following pt. Orders faxed to [facility]. Pt's choice and rights forms signed by pt and copies on chart. Pt's daughter aware of plan and agreeable. Pt will transport via central transport at 1030. Packet on chart.
--- NOTE | 2018-07-27 11:07 | NUR ---
Discharge Note: CARL MIKE Discharge instructions and discharge home medications reviewed with Other facility and a copy given. All questions have been answered and understanding verbalized. Report called in to ELIJAH Christianson The following instructions and handouts were given: UTI, Preventing Falls, Discharge Instructions, Prescription for Zoloft Discontinued lines and drains: PIV in Right Forearm Removed, Catheter intact. Patient discharged to [facility] via [facility].
--- NOTE | 2018-07-27 18:19 | DS ---
DATE OF DISCHARGE: 07/27/2018 PRIMARY DIAGNOSES: Fall with weakness, inability to do self-care due to Strep viridans urinary tract infection. ADDITIONAL DIAGNOSES: Dementia, hypothyroidism, diabetes, hyperlipidemia, hypertension. CHIEF COMPLAINT AND HISTORY OF PRESENT ILLNESS: This 83-year-old white female lives in assisted living. Daughter came to see her on the day of admission, found her lying on the floor in the bathroom. She was brought to the ER where she was found to have a urinary tract infection and inability to transfer or walk in the Emergency Room, was admitted for the same. She did complain of some right hip pain as her only major complaint. Imaging of that was negative as well as had head CT and cervical spine CT showing no acute abnormalities. SUMMARY OF STAY: The patient was admitted. Home medications were continued. She was continued on antibiotics. Therapy evaluation recommended [facility]. She was covered with Rocephin for urinary tract infection. By the day of discharge, it came back as Strep viridans as the organism and was transferred to cefdinir orally for the same. She was felt ready for transfer to [facility] and this was accomplished. DISPOSITION: The patient is discharged to [facility]. Please see orders there regarding diet, medication, activity, etc. We will continue to follow her there. WINNIE SANTOS MD DR: SACHI/simón JOB#: [id number] / [id number]
== END 2018-07-27 10:45 | DRG 871 ==
LOC: ER 09:51 → 5 NORTH 13:06
PROVIDERS: ADMIT Family Medicine; ATTEND Family Medicine
DX: A41.9 Sepsis, unspecified organism (principal); G93.41 Metabolic encephalopathy; N39.0 Urinary tract infection, site not specified; B95.4 Other streptococcus as the cause of diseases classified elsewhere; E03.9 Hypothyroidism, unspecified; E11.9 Type 2 diabetes mellitus without complications; E78.00 Pure hypercholesterolemia, unspecified; F03.90 Unspecified dementia, unspecified severity, without behavioral disturbance, psychotic disturbance, mood disturbance, and anxiety; I10 Essential (primary) hypertension; E78.5 Hyperlipidemia, unspecified; F32.9 Major depressive disorder, single episode, unspecified; W18.39XA Other fall on same level, initial encounter; Y93.89 Activity, other specified; Y92.89 Other specified places as the place of occurrence of the external cause; Y99.8 Other external cause status
CPT/HCPCS: 36415; 70450; 72125; 73502; 80048; 80053; 81001; 82553; 82962; 84484; 85025; 87086; 93005; J0696; J3010; J7030; 97110; 99285-25